=== PATIENT | female | born 1980 | race African-American/Black ===

== ENCOUNTER 2018-12-12 13:33 | Inpatient (IN) | payer MEDICAID ==
[~2018-12-12] VITALS: Ht 157.5 cm; Wt 171.0 kg
[2018-12-12] VITALS (9 sets, daily range): BP systolic 81–147; BP diastolic 44–114
--- NOTE | 2018-12-12 16:00 | NUR ---
PATIENT ARRIVED. CONNECTED TO LOW INT SUCTION. IMMEDIATE RETURN. 4 L NC. VSS. BESSYIN AWARE OF PATIENT HERE VIA TEXT FROM CHARGE NURSE.
--- NOTE | 2018-12-12 17:40 | NUR ---
DR ZAMORA AT BEDSIDE. UPDATE GIVEN.
--- NOTE | 2018-12-12 19:30 | NUR ---
PT A/OX4, LUNGS CLEAR, NGT VIA RIGHT NARE TO LIS, O2 @ 2L VIA N/C, LEFT MIDLINE INTACT WITH NS @ 100 CC/HR, MERRILL PATENT TO BSD, ABDOMEN DISTENDED WITH LARGE HERNIA, NO C/O @ THIS TIME
[2018-12-12 20:29] LABS: BASOPHILS 0 % (0-2); EOSINOPHILS 0.1 % (0-7); HEMATOCRIT 26.8 % (36.0-48.0); HEMOGLOBIN 8.2 g/dL (12-16); IMMATURE GRANULOCYTES 0.4 % (0-5); LYMPHOCYTES 11.3 % (15-50); MCH 23.4 pg (26.0-34.0); MCHC 30.6 g/dL (31.0-37.0); MCV 76.6 fL (80.0-100.0); MEAN PLATELET VOLUME 10.5 fL (7.4-10.4); MONOCYTES 8.2 % (2-11); PLATELET COUNT 324 10x3/uL (130-400); RDW 19.4 % (11.5-14.5); WBC 9.7 10x3/uL (4.8-10.8)
[2018-12-12 20:57] LABS: ALBUMIN 2.6 g/dL (3.4-5.0); ANION GAP 9.1 mmol/L (8-16); BILIRUBIN - TOTAL 1.13 mg/dL (0.2-1.3); CARBON DIOXIDE 37.5 mmol/L (21.0-32.0); CREATININE - SERUM 2.7 mg/dL (0.6-1.3); MAGNESIUM - SERUM 2.3 mg/dL (1.8-2.4); POTASSIUM - SERUM 4.6 mmol/L (3.5-5.1); PROTEIN - SERUM 6.3 g/dL (6.4-8.2)
--- NOTE | 2018-12-12 21:30 | NUR ---
PT RESTING QUIETLY, VITALS STABLE
--- NOTE | 2018-12-12 23:30 | NUR ---
TEMP 100.0 ORALLY, PT AROUSES EASILY, NO C/O PAIN, WILL CONT TO MONITOR
[2018-12-13] VITALS (24 sets, daily range): BP systolic 93–142; BP diastolic 47–108; Ht 157.5 cm; Wt 171.0 kg
[2018-12-13 00:28] LABS: APPEARANCE CLOUDY (CLEAR); BILIRUBIN NEGATIVE (NEGATIVE); COLOR DK YELLOW (YELLOW); GLUCOSE NEGATIVE (NEGATIVE); KETONE NEGATIVE (NEGATIVE); NITRITE NEGATIVE (NEGATIVE); PROTEIN 2+ mg/dL (NEGATIVE); UROBILINOGEN NORMAL (NORMAL)
[2018-12-13 00:32] LABS: EPITHELIAL CELLS 0-5 /hpf (0-5)
[2018-12-13 00:33] LABS: BACTERIA MANY /hpf (NONE SEEN)
--- NOTE | 2018-12-13 01:30 | NUR ---
PT SLEEPING WITHOUT DISTRESS, VITALS STABLE
--- NOTE | 2018-12-13 03:45 | NUR ---
PT GONE TO RADIOLOGY VIA BED
[2018-12-13 04:20] LABS: BASOPHILS 0 % (0-2); EOSINOPHILS 0 % (0-7); HEMATOCRIT 25.3 % (36.0-48.0); HEMOGLOBIN 7.6 g/dL (12-16); IMMATURE GRANULOCYTES 0.1 % (0-5); LYMPHOCYTES 12.4 % (15-50); MCV 76.7 fL (80.0-100.0); MONOCYTES 9.3 % (2-11); NEUTROPHILS 78.2 % (40-80); PLATELET COUNT 305 10x3/uL (130-400); RDW 19.1 % (11.5-14.5); WBC 9.9 10x3/uL (4.8-10.8)
[2018-12-13 04:45] LABS: % SATURATION 6 % (15-55); IRON 17 ug/dl (35-150); TOTAL IRON BIND CAPACITY 262 ug/dl (260-445); UNSAT IRON BIND CAPACITY 245 ug/dl (150-375)
[2018-12-13 05:09] LABS: ALBUMIN 2.5 g/dL (3.4-5.0); ANION GAP 8.7 mmol/L (8-16); BILIRUBIN - TOTAL 1.35 mg/dL (0.2-1.3); CARBON DIOXIDE 36.6 mmol/L (21.0-32.0); CREATININE - SERUM 3.2 mg/dL (0.6-1.3); MAGNESIUM - SERUM 2.2 mg/dL (1.8-2.4); PHOSPHOROUS 3.1 mg/dL (2.5-4.9); POTASSIUM - SERUM 4.3 mmol/L (3.5-5.1); PROTEIN - SERUM 6.7 g/dL (6.4-8.2)
--- NOTE | 2018-12-13 05:45 | NUR ---
PTWANTS TO KNOW WHY SHE CANT HAVE WATER, EXPLAINED SHE NEEDED TO LET HER GUT REST AND WOULD NOT BE ABLE TO DIGEST ANYTHING AT THIS TIME, MOM @ BEDSIDE
--- NOTE | 2018-12-13 07:00 | NUR ---
PATIENT IS ALERT AND ORIENTED. HOB 30 DEGREES. NO ABDOMINAL PAIN. NO PASSING OF GAS. PATIENT STATES SHE IS NO DISTRESS OR HAS NO NEEDS. I PROVIDED ICE CHIPS AT THIS TIME. LOW FEVER OF 99.5. STATES SHE IS COLD. LUNGS CTA BILATERALLY. PULSES PALP. NO N/V.
--- NOTE | 2018-12-13 09:30 | NUR ---
PATIENT TAKEN TO CT.
[2018-12-13 10:45] LABS: APTT 34.4 SECONDS (22.8-39.4); INR 1.27 (0.85-1.17); PROTIME 15.4 SECONDS (11.6-15.0)
--- NOTE | 2018-12-13 11:24 | NUR ---
GAVE PATIENT ICE CHIPS. FEVER OF 100.4. PATIENT STATES SHE IS TOO COLD TO TAKE COVERS OFF. VSS. 2 NS BOLUSES COMPLETED. WILL CONTINUE TO MONITOR.
--- NOTE | 2018-12-13 12:32 | NUR ---
dr avelar at bedside.
--- NOTE | 2018-12-13 13:23 | NUR ---
ANU TAKEN TO SURGERY
--- NOTE | 2018-12-13 15:46 | NUR ---
REPORT RECIEVED FROM CORETTA CARDOSO.
--- NOTE | 2018-12-13 16:38 | MORECARE ---
CASE MANAGEMENT DISCHARGE SUMMARY PATIENT: AYESHA ROMAN UNIT: [id number] ADM DATE: 12/12/18 AGE: 38 : 80 SEX: F ROOM/BED: D.2303 AUTHOR: SONNY FAITH PHYSICIAN: REFERRING PHYSICIAN: JENNIFER ZAMORA MD DATE OF SERVICE: 12/13/18 Discharge Plan Patient Name: AYESHA ROMAN [facility] : 1980 Planned Disposition: Home Anticipated Discharge Date: Discharge Date: Expected LOS: Initial Reviewer: [email or web address] Initial Review Date: 12/13/2018 Generated: 12/13/18 5:37 pm DCPIA - Discharge Planning Initial Assessment Updated by [email or web address]: Marlin Stewart on 12/13/18 4:34 pm * Is the patient Alert and Oriented? Yes * How many steps to enter\exit or inside your home? * PCP LAURA SANCHEZ * [facility] * Preadmission Environment Home with Family * ADLs Independent * Equipment None * List name and contact numbers for known caregivers / representatives who currently or will assist patient after discharge: GRANT DO [facility] - [phone] * Verbal permission to speak to the caregivers and representatives has been obtained from the patient. Yes * Community resources currently utilized None * Additional services required to return to the preadmission environment? No * Can the patient safely return to the preadmission environment? Yes * Has this patient been hospitalized within the prior 30 days at any hospital? No Patient Name: AYESHA ROMAN Page [id number] at 1638 All edits/amendments must be made on the electronic document DICTATION DATE: 12/13/[address] PRODUCTION GENERAL MANAGER: MARY 12/13/181636 RPT#: [id number] DC DATE: STATUS: ADM IN [facility] [address] [place] [address] END OF REPORT
--- NOTE | 2018-12-13 16:42 | NUR ---
patient back from OR
--- NOTE | 2018-12-13 17:00 | NUR ---
all lines hooked up to patient. order acknowledged. i and o done at this time. drains emptied. patient on vent 40%. no distress noted. patient sedated. vss. no levophed drip. will continue to monitor
--- NOTE | 2018-12-13 17:08 | MORECARE ---
CASE MANAGEMENT DISCHARGE SUMMARY PATIENT: AYESHA ROMAN UNIT: [id number] ADM DATE: 12/12/18 AGE: 38 : 80 SEX: F ROOM/BED: D.2303 AUTHOR: VIANNEY,DOC PHYSICIAN: REFERRING PHYSICIAN: JENNIFER ZAMORA MD DATE OF SERVICE: 12/13/18 Discharge Plan Patient Name: AYESHA ROMAN Facility: [facility]:[place] : 1980 Planned Disposition: Home Anticipated Discharge Date: Discharge Date: Expected LOS: Initial Reviewer: [email or web address] Initial Review Date: 12/13/2018 Generated: 12/13/18 6:08 pm Comments DCP- Discharge Planning Updated by [email or web address]: Marlin Stewart on 12/13/18 4:[address] Patient Name: AYESHA ROMAN Admission Status: Elective Accout number: [id number] Admission Date: 12-12-2018 : 1980 Admission Diagnosis: Attending: JENNIFER ZAMORA Current LOS: 1 Anticipated DC Date: Planned Disposition: Home Primary Insurance: UNINSURED DISCOUNT PLAN Discharge Planning Comments: CM met with patient and her Mother Yamilet at bedside after explaining CM role and obtaining verbal consent. Patient is drowsy at this time and will be having surgery later today. Patient lives at home with her three sons where she is independent with his care and plans to return there upon discharge. Patient feels this would be a safe discharge. CM discussed availability / needs of home health and medical equipment. Patient denies any discharge needs at this time. Uncertain as to what her needs will be at discharge. CM checked with Moisés with [employer] to see if patient has been evaluated for Medicaid. Moisés stated that they have not evaluated yet .Patient's mother stated she will have her family drive her home upon discharge. CM will continue to follow and assist as needed with discharge planning / needs. Re Etcher: Marlin Stewart DCPIDeni - Discharge Planning Initial Assessment Updated by [email or web address]: Marlin Stewart on 12/13/18 4:34 pm * Is the patient Alert and Oriented? Yes * How many steps to enter\exit or inside your home? * PCP LAURA SANCHEZ * Pharmacy [facility] * Preadmission Environment Home with Family * ADLs Independent * Equipment None * List name and contact numbers for known caregivers / representatives who currently or will assist patient after discharge: YAMILET DO - MOTHER - [phone] * Verbal permission to speak to the caregivers and representatives has been obtained from the patient. Yes * Community resources currently utilized None * Additional services required to return to the preadmission environment? No * Can the patient safely return to the preadmission environment? Yes * Has this patient been hospitalized within the prior 30 days at any hospital? No Last DP export: 12/13/18 3:38 p Patient Name: AYESHA ROMAN Page [phone] at 1708 All edits/amendments must be made on the electronic document DICTATION DATE: 12/13/181707 EVENING SITTER: MARY 12/13/181707 RPT#: [id number] DC DATE: STATUS: ADM IN [facility] [address] [place] [address] END OF REPORT
--- NOTE | 2018-12-13 18:41 | NUR ---
RESTRAINT ORDER IN. RESTRAINTS ON.
--- NOTE | 2018-12-13 19:00 | NUR ---
RECIEVED REPORT, PT SEDATED, OPENS EYES BRIEFLY TO VERBAL STIMULI, ETT PATENT TP VENT, NGT TO LIWS WITH MINIMAL GREEN OUTPUT, RIGHT IJ CVL INTACT WITH IVF INFUSUNG, LEFT MIDLINE INTACT WITH PROPOFOL INFUSING @ 5 MCG, ABDOMINAL INCISION WITH ERIKA INTAVT, WOUND VAC DRESING TO ABDOMEN, MERRILL PATENT TO BSD WITH CLEAR YELLOW URINE, RIGHT WRIST ART LINE INTACT, BILAT SWR IN USE
--- NOTE | 2018-12-13 21:00 | NUR ---
PT REMAINS SEDATED WITH NO DISTRESS NOTED, VITALS STABLE, WILL CONT TO MONITOR
--- NOTE | 2018-12-13 22:25 | NUR ---
SPOKE WITH DR LARA, STATES XRAY SHOWS ETT IN RIGHT MAIN STEM, ETT PULLED OUT TO 22 CM BY RT RAFAEL XRTD ORDERED FOR PLACEMENT
--- NOTE | 2018-12-13 23:30 | NUR ---
GIVEN TYLENOL VIA NGT AND CLAMPED FOR 30 MINUTES FOR TEMP 101.4 AX
[2018-12-14] VITALS (28 sets, daily range): BP systolic 104–149; BP diastolic 59–89
--- NOTE | 2018-12-14 01:30 | NUR ---
PT REMAINS SEDATED, OPENS EYES TO STIMULI, VITALS STABLE
--- NOTE | 2018-12-14 03:23 | NUR ---
PT OPENS EYES TO STIMULI, SEDATED, ETT INTACT TO VENT, LUNGS CTA, VITALS REMAIN STABLE
--- NOTE | 2018-12-14 05:32 | NUR ---
PT OPENS EYES TO VERBAL, DENIES PAIN, MOTHER @ BEDSIDE, VITALS STABLE
[2018-12-14 05:35] LABS: ALBUMIN 1.9 g/dL (3.4-5.0); ANION GAP 8.7 mmol/L (8-16); BILIRUBIN - TOTAL 1.45 mg/dL (0.2-1.3); CALCIUM 8.1 mg/dL (8.5-10.1); CARBON DIOXIDE 30.5 mmol/L (21.0-32.0); MAGNESIUM - SERUM 2.3 mg/dL (1.8-2.4); POTASSIUM - SERUM 4.2 mmol/L (3.5-5.1); PROTEIN - SERUM 5.9 g/dL (6.4-8.2)
[2018-12-14 05:46] LABS: BASOPHILS 0.2 % (0-2); EOSINOPHILS 0 % (0-7); HEMATOCRIT 22.8 % (36.0-48.0); IMMATURE GRANULOCYTES 0.2 % (0-5); LYMPHOCYTES 20.2 % (15-50); MCH 22.9 pg (26.0-34.0); MCHC 29.8 g/dL (31.0-37.0); MCV 76.8 fL (80.0-100.0); MEAN PLATELET VOLUME 9.6 fL (7.4-10.4); MONOCYTES 6.3 % (2-11); NEUTROPHILS 73.1 % (40-80); RBC 2.97 10x6/uL (4.00-5.40); RDW 19.1 % (11.5-14.5)
[2018-12-14 05:47] LABS: WBC 6.6 10x3/uL (4.8-10.8)
[2018-12-14 05:48] LABS: HEMOGLOBIN 6.8 g/dL (12-16); PLATELET COUNT 226 10x3/uL (130-400)
[2018-12-14 05:49] LABS: CREATININE - SERUM 1.6 mg/dL (0.6-1.3); PHOSPHOROUS 1.9 mg/dL (2.5-4.9)
--- NOTE | 2018-12-14 06:00 | NUR ---
HGB 6.8, CALLED RESULTS TO MARILU BLOUNT, ORDERS RECIEVED TO TRANSFUSE 1 UNIT PRBC AND RECHECK CBC @ 1200
--- NOTE | 2018-12-14 07:00 | NUR ---
PATIENT IS ON VENTILATOR. 40%. RR OF 14. NO DISTRESS NOTED.. PATIENT IS AWARE OF SITUATION. SHE IS ABLE TO FOLLOW COMMANDS. VSS. SAYS SHE IS IN A LITTLE PAIN. EDUCATED HER ON THE FENTANYL DRIP. SHIFT ASSESSMENT COMPLETED. LUNGS CTA BILATERAL.
--- NOTE | 2018-12-14 07:54 | NUR ---
ZEROED THE ARTERAIL LINE. NOT RECIEVING CORRECT READING. WAS TOLD IN REPORT RESPIRATORY ATTEMPTED TO DRAW FROM IT AND IT DID NOT WORK.
--- NOTE | 2018-12-14 08:45 | OP ---
PATIENT NAME: AYESHA ROMAN MEDICAL RECORD: [id number] :[birth year] LOCATION:[facility] D.2303 ADMISSION DATE:12/12/18 SURGEON: ZENY LARA MD DATE OF OPERATION: 12/13/2018 SURGEON: Zeny Lara MD PREOPERATIVE DIAGNOSIS: Incarcerated ventral hernia. POSTOPERATIVE DIAGNOSES: 1. Incarcerated ventral hernia. 2. Necrotizing soft tissue fasciitis. 3. Gangrenous small bowel. PROCEDURE PERFORMED: Exploratory laparotomy, small bowel resection, sharp scissor debridement of necrotizing soft tissue infection. Medically necessary vertical panniculectomy, abdominal washout, and incisional hernia repair with mesh. Case was contaminated. ESTIMATED BLOOD LOSS: 300 cc. ANESTHESIA: General. COMPLICATIONS: None. OPERATIVE COURSE: After consent was obtained, the patient was taken to the operating room and placed in supine position on the operating table. Next, general anesthesia was given via endotracheal intubation after a timeout was performed to confirm the correct patient and procedure. A midline incision was made using 10-blade scalpel. Once the skin was incised, dissection continued through the subcutaneous tissue with electrocautery. A large hernia sac was identified below the skin and subcutaneous level consistent with CT scan findings. The contents of the approximately 1/2-2/3 of the small bowel where herniated through the ventral hernia defect. The bowel had full-thickness gangrenous necrosis with necrotic subcutaneous tissue noted throughout the subcutaneous space. There was no bowel perforations noted. The subcutaneous tissue was continuously dissected with electrocautery until the fascial edges were identified on the ventral hernia. The ventral hernia defect was then opened using electrocautery in the midline, inferiorly and superiorly. The proximal and distal portions of the small bowel that were living and healthy were identified. At this time, small bowel resected using linear ELEANOR staplers. The mesentery was taken with the Harmonic scalpel, grossly gangrenous small bowel was passed off the field and sent for permanent pathology. The abdominal cavity was copiously irrigated and suctioned. Approximately 1/3-1/2 of the small bowel remained. A functional [id number]-ym-[id number] anastomosis was created using the linear ELEANOR staplers. Enterotomies were made with the Harmonic scalpel. Common enterotomy was made using the linear ELEANOR stapler. The common enterotomy was then closed with a second firing of the linear ELEANOR stapler. The staple line was imbricated using 3-0 Vicryl suture. The mesenteric defect was closed using 3-0 Vicryl suture. The small bowel was run from the ligament of Treitz to the terminal ileum, remaining portion of the abdominal contents appeared intact. Due to the degree of necrotizing fasciitis of the subcutaneous tissue, this time a medically necessary vertical panniculectomy was performed to excise all OPERATIVE REPORT [id number] AYESHA ROMAN necrotic and skin and subcutaneous tissue. At this time, the fascia was closed using interrupted #1 looped PDS. An onlay hernia repair with mesh was performed using Phasix mesh. It was secured to the anterior abdominal wall using 3-0 Vicryl suture, subcutaneous flaps were created to allow for closure using electrocautery. Prior to closure, MELODY drains were placed, a single MELODY drain was placed into the abdominal pelvis. Two MELODY drains were placed in the subcutaneous layer to the abdominal fascia. The skin was then reapproximated and closed using the skin stapler. A small portion in the middle of the incision was left open, closure with negative pressure wound therapy. At the remaining portion of the open incision, black foam was placed into the subcutaneous tissue. The VAC was placed to suction with good seal. The MELODY drains were placed to suction. At the end of the case, all needle and instrument counts were correct. No complications occurred. The patient was transferred in critical condition, intubated to the ICU. TRANSINT:[id number] Voice Confirmation ID: [id number] DOCUMENT ID: [id number] ZENY LARA MD at 0845 CC: [id number] DICTATION DATE: 12/13/18 164 SCAGLIOLA MECHANIC: 12/14/18 0259 ADM IN [facility] [address] [place] [address]
--- NOTE | 2018-12-14 09:15 | NUR ---
DR CHEN AT BEDSIDE. UPDATE GIVEN. ORDER TO EXTUBATE.
--- NOTE | 2018-12-14 11:00 | NUR ---
PATIENT RESTING. STATES PAIN OF 3/10. MINIMAL ABDOMINAL PAIN. STATES PAIN GETS WORSE WHEN SHE COUGHS. VSS. NO DISTRESS NOTED. NPO. REASSESSMENT DONE AT THIS TIME. WILL CONINTUE TO MONITOR
--- NOTE | 2018-12-14 12:57 | NUR ---
Nutrition follow-up: Pt NPO, intubated s/p SB resection; 50-75 cm small bowel with ileocical valve intact. 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 Wt: 396# Will need nutrition support if unable to extubate within 24-[address] following.
--- NOTE | 2018-12-14 12:59 | NUR ---
WOUND CARE AWARE OF CONSULT
[2018-12-14 13:34] LABS: BASOPHILS 0 % (0-2); EOSINOPHILS 0 % (0-7); IMMATURE GRANULOCYTES 0.4 % (0-5); LYMPHOCYTES 15.1 % (15-50); MCH 23.9 pg (26.0-34.0); MONOCYTES 6.4 % (2-11); NEUTROPHILS 78.1 % (40-80); PLATELET COUNT 204 10x3/uL (130-400); RBC 3.14 10x6/uL (4.00-5.40); RDW 19.1 % (11.5-14.5); WBC 8.1 10x3/uL (4.8-10.8)
[2018-12-14 13:38] LABS: HEMOGLOBIN 7.5 g/dL (12-16); MCV 79.6 fL (80.0-100.0)
--- NOTE | 2018-12-14 15:00 | NUR ---
PATIENT AFEBRILE. HIGHEST TEMP 99.2. 4 LNC. DENIES SOB OR ANY DISTRESS. STATES SHE DOES HAVE PAIN WHEN SHE COUGHS. HOB 30. MERRILL FREE OF KINKS AND HANGING ON SIDE OF BED. CALL LIGHT WITHIN REACH. ANSWERED QUESTIONS FAMILY HAD. EDUCATED ON MEDICATIONS SHE IS ON.
--- NOTE | 2018-12-14 17:30 | NUR ---
CVL DRESSING DONE. ORAL CARE DONE. WILL CONTINUE TO MONITOR. CALL LIGHT WITHIN REACH. NO DISTRESS NOTED. PATIENT STATED SHE WANTED HER COUSIN TO BATHE HER WHEN SHE GETS HERE TONIGHT. BED LOW AND LOCKED.
--- NOTE | 2018-12-14 20:34 | NUR ---
RIGHT WRIST ART LINE D/C'D, PT ALERT, ORIENTED, NGT TO LIWS, MELODY DRAIN X3 INTACT, MERRILL PATENT TO BSD, RIGHT IJ CVL WITH IVF INFUSING, NO C/O
--- NOTE | 2018-12-14 21:53 | NUR ---
PT BATHED WITH ASSIST FROM PT SISTER
--- NOTE | 2018-12-14 23:30 | NUR ---
AROUSES TO VERBAL STIMULI, NO DISTRESS NOTED, VITALS STABLE
[2018-12-15] VITALS (13 sets, daily range): BP systolic 107–130; BP diastolic 56–78
--- NOTE | 2018-12-15 01:30 | NUR ---
PT RESTING QUIETLY, OPENS EYES SPONTANEOUSLY, VITALS STABLE, NO C/O
--- NOTE | 2018-12-15 03:30 | NUR ---
PT RESTING QUIETLY, OPENS EYES TO VERBAL, VITALS STABLE
[2018-12-15 04:27] LABS: BASOPHILS 0.1 % (0-2); EOSINOPHILS 0.6 % (0-7); HEMATOCRIT 23.6 % (36.0-48.0); IMMATURE GRANULOCYTES 0.6 % (0-5); LYMPHOCYTES 17.1 % (15-50); MCH 23.8 pg (26.0-34.0); MCHC 29.7 g/dL (31.0-37.0); MCV 80.3 fL (80.0-100.0); MEAN PLATELET VOLUME 9.3 fL (7.4-10.4); MONOCYTES 5.4 % (2-11); NEUTROPHILS 76.2 % (40-80); PLATELET COUNT 176 10x3/uL (130-400); RBC 2.94 10x6/uL (4.00-5.40); RDW 19.1 % (11.5-14.5); WBC 7.7 10x3/uL (4.8-10.8)
[2018-12-15 04:42] LABS: ALBUMIN 1.8 g/dL (3.4-5.0); ANION GAP 6.4 mmol/L (8-16); BILIRUBIN - TOTAL 0.66 mg/dL (0.2-1.3); CALCIUM 7.4 mg/dL (8.5-10.1); CARBON DIOXIDE 32.8 mmol/L (21.0-32.0); MAGNESIUM - SERUM 2.2 mg/dL (1.8-2.4); POTASSIUM - SERUM 4.2 mmol/L (3.5-5.1)
[2018-12-15 04:54] LABS: CREATININE - SERUM 1.1 mg/dL (0.6-1.3); PHOSPHOROUS 3.1 mg/dL (2.5-4.9)
--- NOTE | 2018-12-15 05:05 | NUR ---
HGB 7.0, CALLED MARILU BLOUNT, WILL REFER TO DR ZAMORA THIS AM, PT SLEEPING WITHOUT DISTRESS
--- NOTE | 2018-12-15 06:00 | NUR ---
PT AWAKE, MOM AT BEDSIDE, ENCOURAGED PT TO DEEP BREATHE AND COUGH, CALL LIGHT IN REACH
--- NOTE | 2018-12-15 07:00 | NUR ---
RECEIVED REPORT AT BEDSIDE FROM WALKER GROVER. PT RESTING IN BED AWAKE ALERT AND ORIENTED C VSS. 2L O2 NC. MIDLINE ABDOMINAL INCISION CLOSED WITH ERIKA AND TEGARDER. 2 MELODY DRAINS TO RIGHT LOWER ABDOMEN, 1 MELODY TO LEFT LOWER ABDOMEN. WOUND VAC TO MID ABDOMINAL INCISION. ALL DRAINING SEROSANGUINEOUS FLUID. MERRILL DRAINING CONCENTRATED URINE. LEFT UPPER ARM MIDLINE SALINE LOCKED. RIGHT IJ C D5LR INFUSING AT 125. NGT TO LIS--LIGHT GREEN BILE DRAINAGE. SCD'S INTACT. WILL CONTINUE TO MONITOR
--- NOTE | 2018-12-15 07:53 | NUR ---
CVP 6
--- NOTE | 2018-12-15 08:22 | NUR ---
ASSISTED PATIENT UP TO CHAIR PER DR. LARA. VSS
--- NOTE | 2018-12-15 08:45 | NUR ---
OBTAINED CONSENT FOR PRBC TRANSFUSION
--- NOTE | 2018-12-15 09:10 | NUR ---
INITIATED PRBC TRANSFUSION AT THIS TIME. VSS. WILL CONTINUE TO MONITOR
--- NOTE | 2018-12-15 09:49 | NUR ---
PRBC INFUSING AT 125ML/HR. VSS
--- NOTE | 2018-12-15 10:33 | NUR ---
INCREASED PRBC RATE TO 150. VSS
--- NOTE | 2018-12-15 11:40 | NUR ---
PRBC TRANSFUSION COMPLETE. VSS
--- NOTE | 2018-12-15 13:11 | NUR ---
CALLED REPORT TO MED 2 NURSE.
--- NOTE | 2018-12-15 13:35 | NUR ---
PT RECD FROM ICU TO ROOM. PT IS AAO X 4 BUT EASILY RETURNS TO A RESTING STATE. PT REPORTS PAIN 8/10 TO ABDOMEN. WILL ADDRESS. SEE EMAR. PT REFERS TO STAY IN BEDSIDE CHAIR AT THIS TIME. NG TUBE TO RIGHT NARE. MELODY DRAINS X 3. MELODY DRAIN TO LLQ WITH SCANT YELLOW DRAINAGE NOTED. BULB IS COMPRESSSED. MELODY DRAIN X 2 TO RIGHT ADOMEN WITH MINIMAL YELLOW DRAINAGE IN EACH. BULBS ARE COMPRESSED. WOUND VAC TO UMBILICA AREA DRESSING IS INTACT. 40 ERIKA NOTED TO MIDLINE ABDOMEN OPEN TO AIR EXCEPT FOR FEW THAT ARE COVERED WITH DRESSING FOR WOUND VAC. MERRILL CATHETER NOTED AND IS DRAINING FREELY. CLEAR DARK YELLOW URINE NOTED TO COLLECTION BAG. PT DENIES PRESENCE OF N/V. PT IS CONT TO REQUEST TO STAY IN BEDSIDE CHAIR. CALL LIGHT AND BEDSIDE TABLE ARE WITHIN REACH. WILL CONT TO MONITOR. FAMILY IS AT BEDSIDE.
--- NOTE | 2018-12-15 15:32 | NUR ---
OT NOTE: PT REQUIRED MAX A X2 FOR CHAIR TO BED TSF. PT COMPLETED BED MOB TASKS IWTH MAX A X2. THANK YOU,JONA TRONCOSO
--- NOTE | 2018-12-15 17:45 | NUR ---
PHARMACY NOTIFIED OF NEED FOR PT FLUIDS. SEE EMAR. ICU STAFF STATES THAT THEY DO NOT HAVE ANY ON THEIR FLOOR. WILL WAIT FOR PHARMACY TO BRING PT FLUIDS.
[2018-12-16 00:35] VITALS: BP 116/53
[2018-12-16 05:07] VITALS: BP 113/70
[2018-12-16 06:12] LABS: BASOPHILS 0.3 % (0-2); EOSINOPHILS 2.7 % (0-7); IMMATURE GRANULOCYTES 0.9 % (0-5); LYMPHOCYTES 20.3 % (15-50); MONOCYTES 7.2 % (2-11); NEUTROPHILS 68.6 % (40-80)
[2018-12-16 06:19] LABS: HEMATOCRIT 26.6 % (36.0-48.0); MCH 24.4 pg (26.0-34.0); MCHC 30.1 g/dL (31.0-37.0); MCV 81.1 fL (80.0-100.0); PLATELET COUNT 163 10x3/uL (130-400); RBC 3.28 10x6/uL (4.00-5.40); RDW 19.2 % (11.5-14.5); WBC 7.9 10x3/uL (4.8-10.8)
[2018-12-16 06:30] LABS: ALBUMIN 1.8 g/dL (3.4-5.0); ANION GAP 9.2 mmol/L (8-16); BILIRUBIN - TOTAL 0.39 mg/dL (0.2-1.3); CALCIUM 7.9 mg/dL (8.5-10.1); MAGNESIUM - SERUM 2.1 mg/dL (1.8-2.4); PHOSPHOROUS 2.9 mg/dL (2.5-4.9); POTASSIUM - SERUM 4.2 mmol/L (3.5-5.1); PROTEIN - SERUM 6.4 g/dL (6.4-8.2)
[2018-12-16 08:30] VITALS: BP 133/71
[2018-12-16 08:46] LABS: PLATELET ESTIMATE NORMAL
[2018-12-16 08:48] LABS: ANISOCYTOSIS OCC; PLATELET MORPHOLOGY PLT CLUMPS PRESENT; POLYCHROMASIA OCC; ROULEAUX OCC
--- NOTE | 2018-12-16 11:22 | NUR ---
WOUND VAC DRESSING CHANGE DATE:12/16/18 WOUND LOCATION:MIDLINE ABDOMEN WOUND MEASUREMENTS:7CM X 5CM X 5CM WOUND DESCRIPTION: RED/CLEAN MUSCLE, TENDON, OR BONE EXPOSED? NO DRAINAGE AMOUNT/DESCRIPTION: MODERATE SEROSANGUINOUS ODOR? NO TYPE OF SPONGE USED AND AMOUNT: BLACK X 2 PIECES SETTINGS: -125 LOW CONTINUOUS TEACHING: DRESSING CHANGES PT TOLERATED WELL
[2018-12-16 12:56] VITALS: BP 100/49
--- NOTE | 2018-12-16 14:40 | NUR ---
OT NOTE: PT PERFORMED VERY WELL TODAY. LETHARGIC BUT STATED THAT SHE WAS JUST GIVEN SOMETHING FOR PAIN. BED MOB WITH MOD ASSIST. SIT TO STAND WITH WALKER AND MIN ASSIST; AMB INTO HALLWAY WITH WALKER AND MIN ASSIST X APPROX 30 FT. ABLE TO PERFORM SIMPLE GROOMING TASK WITH SET UP; TRANSFER TO CHAIR WITH MIN ASSIST AND USE OF WALKER. PT WAS ABLE TO SCOOT BACK IN CHAIR WITHOUT ASSIST TODAY. RESTING COMFORTABLE WITH NO NEEDS. SYEDA MONTES DE OCA, OTR/L
[2018-12-16 16:35] VITALS: BP 130/68
--- NOTE | 2018-12-16 19:15 | NUR ---
PT ALERT AND ORIENTED WHEN ENTERING THE ROOM. HOB AT 15 DEGREE ANGLE. PATIENT MOTHER AT BEDSIDE. PATIENT LUNGS CLEAR BILATERALLY. WEARING 02 AT 2 L VIA NC. PATIENT ABDOMEN IS DISTENDED. HAS WOUNDVAC ATTACHED WITH DARK DRAINAGE IN CANNISTER. ERIKA TO ABDOMEN WITH MELODY DRAIN X 2 TO THE RIGHT SIDE OF ABDOMEN AND ONE MELODY TO THE LEFT SIDE OF ABDOMEN. SMALL AMOUNT OR YELLOWISH DRAINAGE NOTED. PATIENT HAS RIGHT INTERNAL JUGGULAR THAT IS PATENT AND INFUSING IVF ORDERED. PATIENT ALSO HAS MIDLINE IV TO THE LEFT UPPER ARM THAT IS SALINE LOCKED. STATES PAIN IS CURRENTLY 3. DENIES OTHER ISSUES AT THIS TIME. CPOC.
[2018-12-16 20:00] VITALS: BP 84/49
--- NOTE | 2018-12-16 20:32 | NUR ---
ADMINISTERED PAIN MEDICATION PER REQUEST. ALSO ADMINISTERED PM MEDICATIONS. PT TOLERATED WELL.
[2018-12-17] VITALS (11 sets, daily range): BP systolic 87–149; BP diastolic 46–77
--- NOTE | 2018-12-17 02:24 | NUR ---
UP TO BEDSIDE COMMODE WITH ASSISTANCE. PATIENT UP AND TO BSC WITH MINIMAL ASSIST. UNABLE TO URINATE OTHER THAN FEW DROPS. WILL REASSESS.
--- NOTE | 2018-12-17 06:38 | NUR ---
ASSISTED PATIENT TO BEDSIDE COMMODE AGAIN. PATIENT DID NOT VOID WITH OTHER NURSING INTERVENTIONS. PATIENT STATES "I FEEL LIKE I COULD GO BUT I DONT REALLY HAVE TO." BLADDER SCANNED PATIENT X 2 AND RECEIVED READINGS OF MAX 223 AND MAX OF 273. DISCUSSED WITH CHARGE NURSE AND CHARGE NURSE STATED IF IT WERE MORE THAN 325+ WE WOULD WANT TO IN AND OUT CATH BUT PATIENT IS NPO EXCEPT FOR POPSICLES, ETC. DISCUSSED OPTIONS WITH PATIENT. PATIENT STATES SHE WOULD LIKE TO WAIT BECAUSE SHE DOESNT FEEL THAT SHE REALLY NEEDS TO AT THIS TIME. REPORTED TO CHARGE NURSE. WILL PASS ALONG IN REPORT. MOTHER REMAINS AT PATIENT BEDSIDE. CPOC.
[2018-12-17 07:09] LABS: BASOPHILS 0.3 % (0-2); EOSINOPHILS 3.6 % (0-7); HEMATOCRIT 26.1 % (36.0-48.0); IMMATURE GRANULOCYTES 1.8 % (0-5); LYMPHOCYTES 23.9 % (15-50); MCH 24.8 pg (26.0-34.0); MCHC 30.7 g/dL (31.0-37.0); MCV 81.1 fL (80.0-100.0); MEAN PLATELET VOLUME 9.5 fL (7.4-10.4); MONOCYTES 7.9 % (2-11); NEUTROPHILS 62.5 % (40-80); PLATELET COUNT 163 10x3/uL (130-400); RBC 3.22 10x6/uL (4.00-5.40); RDW 19.8 % (11.5-14.5); WBC 9.1 10x3/uL (4.8-10.8)
[2018-12-17 07:14] LABS: ANION GAP 10.2 mmol/L (8-16); BILIRUBIN - TOTAL 0.39 mg/dL (0.2-1.3); CALCIUM 7.8 mg/dL (8.5-10.1); CARBON DIOXIDE 29.7 mmol/L (21.0-32.0); CREATININE - SERUM 1.1 mg/dL (0.6-1.3); PHOSPHOROUS 2.9 mg/dL (2.5-4.9); POTASSIUM - SERUM 3.9 mmol/L (3.5-5.1); PROTEIN - SERUM 6.5 g/dL (6.4-8.2)
--- NOTE | 2018-12-17 08:11 | NUR ---
AWKE AND ALERT. ORIENTED X3. NO C/O AT THIS TIME. MOM AT BEDSIDE. LUNGS ARE CLEAR BILATERALLY, NO COUGH NOTED. SKIN IS INTACT WITHOUT REDNESS EXCEPT INCISION TO MID ABDOMEN WHICH IS CLEAN AND DRY IWTH CLIPS INTACT. WOUND VAC IS PATENT WITH SCANT SEROUS SANGUINESS DRAINAGE. MELODY X3 PATENT WITH SCANT SEROUS SANGUINESS DRAINAGE NOTED. RIGHT IJ PATNE TIWHTOUT REDNESS AT INSERTION SITE. MIDLINE TO LEFT UPPER ARM IS PATENT WITHOUT REDNESS AT INSERTION SITE. STILL NO URGE TO VOID. WILL MONITOR. DENIES NEEDS.
--- NOTE | 2018-12-17 11:15 | NUR ---
REQUESTED AND GIVNE 4MG MORPHINE SLOW IVP FOR C/O ABDOMINAL PAIN LEVEL 8. WILL MONITOR.UP AND WORKED WITH PT. VOIDED 350CC DARK JONY ODIFEROUS URINE. UP IN [facility] AT THIS TIME.
--- NOTE | 2018-12-17 14:20 | NUR ---
TRANSFUSION INITIATED. VSS. DENIES NEEDS.
--- NOTE | 2018-12-17 14:37 | NUR ---
TRANSFUSION CONTINUES WITHOUT COMPLICATIONS. VSS. FAMILY AT BEDSIDE.
--- NOTE | 2018-12-17 15:30 | NUR ---
TRANSFUSION CONTINUES WITHOUT COMPLICATIONS. VSS.
--- NOTE | 2018-12-17 16:30 | NUR ---
NO CHANGES. TRANSFUSION CONTINUES. VSS.
--- NOTE | 2018-12-17 17:05 | NUR ---
TRANSFUSION COMPLETED. VSS. NO SIGNS OF REACTIONS.
--- NOTE | 2018-12-17 18:02 | NUR ---
SITTING UP IN [facility] AT BEDSIDE. CL SUPPER SERVED IN ROOM. DENIES NEEDS. FAMILY AT BEDSIDE. NO CHANGES NOTED.
--- NOTE | 2018-12-17 20:00 | NUR ---
PT ALERT AND ORIENTED UP IN CHAIR. ASSISTED PATIENT TO BEDSIDE COMMODE. PATIENT HAS LARGE LIQUID STOOL AND URINATED SEVERAL HUNDRED MLS. PROVIDED BED BATH TO PATIENT AND RETURNED TO BED. PATIENT HAS RIGHT INTERNAL JUGGULAR IV THAT IS PATENT WELL LEFT UPPER ARM MIDLINE. WEARING 2 L NC. DENIES PAIN AT THIS TIME. FAMILY IN ROOM. PROVIDED EDUCATION ON CLEAR LIQUID DIETS. PATIENT VERBALIZES UNDERSTANDING. HAS CALL LIGHT IN HAND AND STATES "i KNOW HOW TO USE IT." CPOC.
[2018-12-18] VITALS: BP 131/75
--- NOTE | 2018-12-18 03:42 | NUR ---
I have reviewed this patient and I concur with the Shift Assessment completed by the Licensed Practical Nurse today this shift.
[2018-12-18 04:00] VITALS: BP 105/66
--- NOTE | 2018-12-18 07:53 | NUR ---
AWAKE AND ALERT. ORIENTED X3. NO C/O THIS AM. MOM AT BEDSIDE. LUNGS HAVE FAINT CRACKELES THROUGHOUT AND DIMINISHED. ENCOURAGED TO IS WA. WILL MONITOR. SKIN IS INTACT WITHOUT REDNESS EXCEPT ABDOMINAL INCISION WHICH IS CLEAN,DRY WITH CLIPS INTACT. WOUND VAC IN PLACE TO SAME WITH SEROUS SANGUINESS DRAINAGE NOTED. MELODY X 3 WITH SCANT OUTPUT. RIGHT IJ PATENT WITHOUT REDNESS AT INSERTION SITE BUT GETTING SORE PER PATIENT. MIDLINE TO LEFT UPPER ARM IS PATENT WITHOUT REDNESS AT INSERTION SITE. DENIES NEEDS.
[2018-12-18 08:15] VITALS: BP 123/75
--- NOTE | 2018-12-18 09:00 | NUR ---
INCONTINENT OF LARGE AMOUNT OF LOOSE WATERY STOOL. SKIN CARE PER STAFF. THIS IS THE SECOND EPISODE THIS AM. DENIES NEEDS.
[2018-12-18 09:52] LABS: ANION GAP 8.6 mmol/L (8-16); CARBON DIOXIDE 28.5 mmol/L (21.0-32.0); CREATININE - SERUM 1.1 mg/dL (0.6-1.3); POTASSIUM - SERUM 4.1 mmol/L (3.5-5.1)
[2018-12-18 09:55] LABS: BASOPHILS 0.7 % (0-2); EOSINOPHILS 3.1 % (0-7); HEMATOCRIT 29.7 % (36.0-48.0); HEMOGLOBIN 9.2 g/dL (12-16); IMMATURE GRANULOCYTES 3.8 % (0-5); MCH 25.3 pg (26.0-34.0); MCV 81.6 fL (80.0-100.0); MEAN PLATELET VOLUME 9.8 fL (7.4-10.4); MONOCYTES 7.7 % (2-11); NEUTROPHILS 59.7 % (40-80); PLATELET COUNT 155 10x3/uL (130-400); RBC 3.64 10x6/uL (4.00-5.40); RDW 19.5 % (11.5-14.5)
--- NOTE | 2018-12-18 11:08 | NUR ---
UP TO BSC WITH PT. HAD ANOTHER EPISODE OF LOOSE WATERY STOOL. SKIN CARE PER STAFF AND SELF. POSITIONED IN CHAIR FOR COMFORT.
--- NOTE | 2018-12-18 12:02 | NUR ---
REQUESTED AND GIVEN 4MG MORPHINE SLOW IVP FOR C/O PAIN ABDOMEN, LEVEL 9. WILL MONITOR.
[2018-12-18 12:18] VITALS: BP 135/63
--- NOTE | 2018-12-18 15:00 | NUR ---
SISTER HERE AND ASSISTED PATIENT WITH BATH AND LINENS CHANGED AGAIN. PATIENT REPORTS FEELING BETTER.
[2018-12-18 17:05] VITALS: BP 139/70
--- NOTE | 2018-12-18 18:31 | NUR ---
ATE ABOUT 25% OF SUPPER REGULAR DIET. NO C/O PAIN OR NAUSEA WITH FOOD. NO CHANGES NOTED. DENIES NEEDS.
--- NOTE | 2018-12-18 18:33 | MORECARE ---
CASE MANAGEMENT DISCHARGE SUMMARY PATIENT: AYESHA ROMAN UNIT: [id number] ADM DATE: 12/12/18 AGE: 38 : 80 SEX: F ROOM/BED: D.2210 AUTHOR: VIANNEY,DOC PHYSICIAN: REFERRING PHYSICIAN: JENNIFER ZAMORA MD DATE OF SERVICE: 12/18/18 Discharge Plan Patient Name: AYESHA ROMAN Facility: [facility]:[place] : 1980 Planned Disposition: Home Anticipated Discharge Date: Discharge Date: Expected LOS: Initial Reviewer: [email or web address] Initial Review Date: 12/13/2018 Generated: 12/18/18 7:33 pm Comments DCP- Discharge Planning Updated by [email or web address]: Melonie Smith on 12/18/18 5:[address] LATE ENTRY 1030 CM RECEIVED A REQUEST TO SPEAK WITH THE PATIENT AND HER MOTHER AT THE BEDSIDE REGARDING DISCHARGE PLANNING. 1330 CM WENT TO THE ROOM. THE PATIENT WAS OOB IN THE CHAIR. SHE COMPLETED HER RESP TREATMENT. SHE STATED HER MOTHER, YAMILET , WANTED TO SPEAK WITH ME. SHE WAS NOT PRSENT IN THE ROOM OR HALLWAY THE PATIENT INDICATED. 1445 THE MOTHER CAME TO THE DESK. CM MET WITH HER IN THE CASE MANAGEMENT OFFICE. THE PATIENT REPORTEDLY HAS BEEN CONTACTED BY [employer]. CM NOTED MEDICAID PENDING. TC TO VERIFY. THE MOTHER IS CONCERNED REGARDING CARE AT DISCHARGE. CM ADVISED HOME HEALTH CAN BE ORDERD FOR SN. THE MOTHER IS IN A WHEELCHAIR. SHE IS LIMITED IN THE ASSISTANCE SHE CAN PROVIDE. CM ADVISED TO ASSIST WITH PROVIDING INFORMATION THAT [employer] REQUEST. 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 DEPENDING ON HER PROGRESS SHE MAY NEED A SKILLED SETTING. THE DISCHARGE PLAN IS FOR HOME. CM ALSO DISCUSSED WORKING WITH SOCIAL SECURITY REGARDING AN APPLICATION FOR DISABILITY DEPENDING ON RECOVERY TIME AND RESTRICTIONS AT DISCHARGE, CM PROVIDED THE 800 PHONE NUMBER FOR SOCIAL SECURITY. CM DISCUSSED MD PROVIDERS ON SERVICE TO DISCUSS POSSIBLE D/C NEEDS. CM ALSO ADVISED A CM IS AVAILABLE ON THE UNIT M-F TO ASSIST. EXPLAINED SHE NEED TO GET RELEASE OF INFORMATION FORMS. CM TO FOLLOW TO ASSIST. DCP- Discharge Planning Updated by [email or web address]: Marlin Stewart on 12/13/18 4:[address] Patient Name: AYESHA ROMAN Admission Status: Elective Accout number: [id number] Admission Date: 12-12-2018 : 1980 Admission Diagnosis: Attending: JENNIFER ZAMORA Current LOS: 1 Anticipated DC Date: Planned Disposition: Home Primary Insurance: UNINSURED DISCOUNT PLAN Discharge Planning Comments: CM met with patient and her Mother Yamilet at bedside after explaining CM role and obtaining verbal consent. Patient is drowsy at this time and will be having surgery later today. Patient lives at home with her three sons where she is independent with his care and plans to return there upon discharge. Patient feels this would be a safe discharge. CM discussed availability / needs of home health and medical equipment. Patient denies any discharge needs at this time. Uncertain as to what her needs will be at discharge. CM checked with Moisés with [employer] to see if patient has been evaluated for Medicaid. Moisés stated that they have not evaluated yet .Patient's mother stated she will have her family drive her home upon discharge. CM will continue to follow and assist as needed with discharge planning / needs. Wafer Polisher: Marlin OMALLEY - Discharge Planning Initial Assessment Updated by [email or web address]: Marlin Stewart on 12/13/18 4:34 pm * Is the patient Alert and Oriented? Yes * How many steps to enter\exit or inside your home? * PCP LAURA SANCHEZ * [facility]acy [facility] * Preadmission Environment Home with Family * ADLs Independent * Equipment None * List name and contact numbers for known caregivers / representatives who currently or will assist patient after discharge: YAMILET DO - MOTHER - [phone] * Verbal permission to speak to the caregivers and representatives has been obtained from the patient. Yes * Community resources currently utilized None * Additional services required to return to the preadmission environment? No * Can the patient safely return to the preadmission environment? Yes * Has this patient been hospitalized within the prior 30 days at any hospital? No Last DP export: 12/13/18 4:08 p Patient Name: AYESHA ROMAN Page 62056 at 1833 All edits/amendments must be made on the electronic document DICTATION DATE: 12/18/181832 CONFERENCE CENTER MANAGER: MARY 12/18/181832 RPT#: [id number] DC DATE: STATUS: ADM IN [facility] [address] [place] [address] END OF REPORT
[2018-12-18 20:00] VITALS: BP 125/51
[2018-12-19] VITALS: BP 118/68
[2018-12-19 04:00] VITALS: BP 116/60
[2018-12-19 05:52] LABS: ANION GAP 12.4 mmol/L (8-16); CALCIUM 7.3 mg/dL (8.5-10.1); CARBON DIOXIDE 26.7 mmol/L (21.0-32.0); POTASSIUM - SERUM 4.1 mmol/L (3.5-5.1)
--- NOTE | 2018-12-19 05:52 | NUR ---
UNABLE TO OBTAIN STOOL SAMPLE DUE TO URINE CONTAMINATION
[2018-12-19 05:55] LABS: HEMATOCRIT 27.3 % (36.0-48.0); HEMOGLOBIN 8.5 g/dL (12-16); MCH 25.1 pg (26.0-34.0); MCHC 31.1 g/dL (31.0-37.0); MCV 80.5 fL (80.0-100.0); MEAN PLATELET VOLUME 10.5 fL (7.4-10.4); PLATELET COUNT 154 10x3/uL (130-400); RBC 3.39 10x6/uL (4.00-5.40); WBC 7.7 10x3/uL (4.8-10.8)
[2018-12-19 07:59] VITALS: BP 124/76
--- NOTE | 2018-12-19 08:20 | NUR ---
PT RESTING IN BED. NO ACUTE DISTRESS NOTED. RIGHT IJ INTACT WITH 1/2 NS @ 50ML/HR INFUSING VIA PUMP. SITE WITHOUT REDNESS OR EDEMA. LEFT UPPER ARM MIDLINE INTACT WITH PROCAL @75 ML/HR, SITE WITHOUT REDNESS OR EDEMA. MIDLINE INCISIONS WITH ERIKA INTACT EDGES WELL APPROXIMATED. WOUND VAC INTACT. MELODY DRAIN TO RIGHT SIDE X 2, MELODY DRAIN TO LEFT SIDE INTACT. REPORTS PAIN 3/10 AT THIS TIME. DENIES FURTHER NEEDS AT THIS TIME. CL WITHIN REACH. ENCOURAGED TO CALL WITH NEEDS. CONTINUE POC
[2018-12-19 09:33] LABS: EOSINOPHILS 4 % (0-7); LYMPHOCYTES 33 % (15-50); MONOCYTES 5 % (2-11); NEUTROPHILS 54 % (40-80); PLATELET ESTIMATE NORMAL; PLATELET MORPHOLOGY PLT CLUMPS PRESENT
[2018-12-19 09:34] LABS: ANISOCYTOSIS OCC; ROULEAUX OCC
--- NOTE | 2018-12-19 11:58 | NUR ---
OT NOTE: ATTEMPTED X 2 THIS AM. PT INITIALLY GETTING IV REMOVED. CHECKED LATER IN AM AND PT HAD DIARRHEA EVERY TIME SHE STOOD UP. WILL ATTEMPT LATER. PT UP IN CHAIR. SYEDA MONTES DE OCA, OTR/L
[2018-12-19 12:54] VITALS: BP 118/65
--- NOTE | 2018-12-19 13:33 | NUR ---
Nutrition follow-up: Diet advanced to consistent CHO PO intake ~25-50% of meals Labs reviewed Wt: 376# Wound VAC to incision + loose stools RDN following.
--- NOTE | 2018-12-19 13:37 | NUR ---
WOUND VAC DRESSING CHANGE DATE: 12/19/18 WOUND LOCATION: midline abd WOUND MEASUREMENTS: 5.5cm x 4cm x 4cm WOUND DESCRIPTION: red/clean MUSCLE, TENDON, OR BONE EXPOSED? suqQ tissue DRAINAGE AMOUNT/DESCRIPTION: moderate serosanguinous ODOR? no TYPE OF SPONGE USED AND AMOUNT: 1 black SETTINGS: -125mmhg low continuous TEACHING: vac changes at home Pt tolerated well.
[2018-12-19 15:37] VITALS: BP 124/68
--- NOTE | 2018-12-19 19:40 | NUR ---
LYING IN BED WATCHING TV. ALERT AND ORIENTED X4. RESP EVEN AND NONLABORED. DENIES PAIN AT THIS TIME. ERIKA NOTED TO ABD INCISION. WOUND VAC TO ABD TO 125MMHG CONTINUOUS SUCTION WITH BLOODY DRAINAGE IN CANISTER. MELODY DRAIN NOTED TO LLQ WITH SEROSANGUINEOUS DRAINAGE IN BULB. DRSG NOTED TO RT ABD FROM WHERE MELODY X2 WAS PULLED TODAY. BS ARE HYPOACTIVE. ABD BINDER IN USE. 1/2 NS @ 30 MLHR INFUSING IN LT UPPER ARM MIDLINE. MOTHER AT BEDSIDE. SR ELEVATED X2. CL IN REACH. GEN WEAKNESS NOTED. AMB WITH STANDBY ASSIST.
[2018-12-19 19:54] VITALS: BP 127/59
--- NOTE | 2018-12-19 21:00 | NUR ---
ASISSTED UP TO BSC TO VOID. URGE INCONTINENCE NOTED. LINENS CHANGED. ASSISTED BACK TO BED. MEDICATED WITH NORCO FOR C/O ABD PAIN. MOTHER AT BEDSIDE. CL IN REACH.
--- NOTE | 2018-12-20 01:00 | NUR ---
RESTING QUIETLY WITH EYES CLOSED. RESP EVEN AND NONLABORED. MOTHER AT BEDSIDE. CL IN REACH. NO DISTRESS.
[2018-12-20 05:01] VITALS: BP 112/49
--- NOTE | 2018-12-20 06:04 | NUR ---
UP TO BSC. DIARRHEA NOTED MIXED WITH URINE.
[2018-12-20 06:47] LABS: BASOPHILS 0.1 % (0-2); EOSINOPHILS 2.2 % (0-7); HEMATOCRIT 27.8 % (36.0-48.0); HEMOGLOBIN 8.8 g/dL (12-16); IMMATURE GRANULOCYTES 2.6 % (0-5); LYMPHOCYTES 22.8 % (15-50); MCH 25.1 pg (26.0-34.0); MCHC 31.7 g/dL (31.0-37.0); MCV 79.4 fL (80.0-100.0); MEAN PLATELET VOLUME 10.3 fL (7.4-10.4); MONOCYTES 7.2 % (2-11); NEUTROPHILS 65.1 % (40-80); PLATELET COUNT 168 10x3/uL (130-400); RDW 20.6 % (11.5-14.5); WBC 9.1 10x3/uL (4.8-10.8)
[2018-12-20 06:58] LABS: ANION GAP 11.7 mmol/L (8-16); CALCIUM 8.1 mg/dL (8.5-10.1); CARBON DIOXIDE 25.8 mmol/L (21.0-32.0); POTASSIUM - SERUM 3.5 mmol/L (3.5-5.1)
--- NOTE | 2018-12-20 07:10 | NUR ---
PT RESTING IN BED. FAMILY AT BEDSIDE. NO ACUTE DISTRESS NOTED AT THIS TIME. PT REPORTS PAIN 5/10 AT THIS TIME AND REQUEST PAIN MEDICATION. INFORMED PT PAIN MEDICATION TO BE ADMINISTERED PER MD ORDERS. IV TO LEFT UPPER ARM WITH 1/2 NS @ 30ML/HR INFUSING VIA PUMP. SITE WITHOUT REDNESS OR EDEMA. MIDLINE INCISION WITH ERIKA INTACT, EDGES WELL APPROXIMATED, WITHOUT DRAINAGE OR REDNESS. WOUND VAC INTACT TO OPEN AREA MID ABDOMEN. DENIES FURTHER NEEDS AT THIS TIME. CL WITHIN REACH. ENCOURAGED TO CALL WITH NEEDS. CONTINUE POC
[2018-12-20 08:38] VITALS: BP 123/54
[2018-12-20 12:46] VITALS: BP 129/63
[2018-12-20 16:12] VITALS: BP 135/60
--- NOTE | 2018-12-20 16:51 | MORECARE ---
CASE MANAGEMENT DISCHARGE SUMMARY PATIENT: AYESHA ROMAN UNIT: [id number] ADM DATE: 12/12/18 AGE: 38 : 80 SEX: F ROOM/BED: D.2210 AUTHOR: VIANNEY,DOC PHYSICIAN: REFERRING PHYSICIAN: JENNIFER ZAMORA MD DATE OF SERVICE: 12/20/18 Discharge Plan Patient Name: AYESHA ROMAN Facility: [facility]:[place] : 1980 Planned Disposition: Home Anticipated Discharge Date: Discharge Date: Expected LOS: Initial Reviewer: [email or web address] Initial Review Date: 12/13/2018 Generated: 12/20/18 5:51 pm Comments DCP- Discharge Planning Updated by [email or web address]: Jaki Melendez on 12/20/18 3:[address] Spoke with patient about putting a temp wound vac on that will need to be changed MW and she does not have transportation for that. CM will continue to follow and assist as needed DCP- Discharge Planning Updated by [email or web address]: Melonie Smith on 12/18/18 5:[address] LATE ENTRY 1030 CM RECEIVED A REQUEST TO SPEAK WITH THE PATIENT AND HER MOTHER AT THE BEDSIDE REGARDING DISCHARGE PLANNING. 1330 CM WENT TO THE ROOM. THE PATIENT WAS OOB IN THE CHAIR. SHE COMPLETED HER RESP TREATMENT. SHE STATED HER MOTHER, YAMILET , WANTED TO SPEAK WITH ME. SHE WAS NOT PRSENT IN THE ROOM OR HALLWAY THE PATIENT INDICATED. 1445 THE MOTHER CAME TO THE DESK. CM MET WITH HER IN THE CASE MANAGEMENT OFFICE. THE PATIENT REPORTEDLY HAS BEEN CONTACTED BY [employer]. CM NOTED MEDICAID PENDING. TC TO VERIFY. THE MOTHER IS CONCERNED REGARDING CARE AT DISCHARGE. CM ADVISED HOME HEALTH CAN BE ORDERD FOR SN. THE MOTHER IS IN A WHEELCHAIR. SHE IS LIMITED IN THE ASSISTANCE SHE CAN PROVIDE. CM ADVISED TO ASSIST WITH PROVIDING INFORMATION THAT [employer] REQUEST. 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 DEPENDING ON HER PROGRESS SHE MAY NEED A SKILLED SETTING. THE DISCHARGE PLAN IS FOR HOME. CM ALSO DISCUSSED WORKING WITH SOCIAL SECURITY REGARDING AN APPLICATION FOR DISABILITY DEPENDING ON RECOVERY TIME AND RESTRICTIONS AT DISCHARGE, CM PROVIDED THE 800 PHONE NUMBER FOR SOCIAL SECURITY. CM DISCUSSED MD PROVIDERS ON SERVICE TO DISCUSS POSSIBLE D/C NEEDS. CM ALSO ADVISED A CM IS AVAILABLE ON THE UNIT M-F TO ASSIST. EXPLAINED SHE NEED TO GET RELEASE OF INFORMATION FORMS. CM TO FOLLOW TO ASSIST. DCP- Discharge Planning Updated by [email or web address]: Marlin Stewart on 12/13/18 4:[address] Patient Name: AYESHA ROMAN Admission Status: Elective Accout number: [id number] Admission Date: 12-12-2018 : 1980 Admission Diagnosis: Attending: JENNIFER ZAMORA Current LOS: 1 Anticipated DC Date: Planned Disposition: Home Primary Insurance: UNINSURED DISCOUNT PLAN Discharge Planning Comments: CM met with patient and her Mother Yamilet at bedside after explaining CM role and obtaining verbal consent. Patient is drowsy at this time and will be having surgery later today. Patient lives at home with her three sons where she is independent with his care and plans to return there upon discharge. Patient feels this would be a safe discharge. CM discussed availability / needs of home health and medical equipment. Patient denies any discharge needs at this time. Uncertain as to what her needs will be at discharge. CM checked with Moisés with [employer] to see if patient has been evaluated for Medicaid. Moisés stated that they have not evaluated yet .Patient's mother stated she will have her family drive her home upon discharge. CM will continue to follow and assist as needed with discharge planning / needs. Devops Architect: Marlin Stewart DCPIA - Discharge Planning Initial Assessment Updated by [email or web address]: Marlin Stewart on 12/13/18 4:34 pm * Is the patient Alert and Oriented? Yes * How many steps to enter\exit or inside your home? * PCP LAURA SACNHEZ * Pharmacy [facility] * Preadmission Environment Home with Family * ADLs Independent * Equipment None * List name and contact numbers for known caregivers / representatives who currently or will assist patient after discharge: YAMILET DO - MOTHER - [phone] * Verbal permission to speak to the caregivers and representatives has been obtained from the patient. Yes * Community resources currently utilized None * Additional services required to return to the preadmission environment? No * Can the patient safely return to the preadmission environment? Yes * Has this patient been hospitalized within the prior 30 days at any hospital? No Last DP export: 12/18/18 5:33 p Patient Name: AYESHA ROMAN Page [id number] at 1651 All edits/amendments must be made on the electronic document DICTATION DATE: 12/20/181650 CODE NUMBER STAMPER: MARY 12/20/181650 RPT#: [id number] DC DATE: STATUS: ADM IN [facility] [address] [place] [address] END OF REPORT
[2018-12-20 17:08] LABS: AEROBE ID Final report (())
[2018-12-20 20:00] VITALS: BP 139/73
[2018-12-21] VITALS: BP 97/67
[2018-12-21 04:00] VITALS: BP 128/72
--- NOTE | 2018-12-21 04:28 | NUR ---
PATIENT IS ALERT AND ORENTED ABLE TO VOICE NEEDS AND WANTS TO STAFF. fAMILY AT BEDSIDE. LEFT ARM MIDLINE IN PLACE AND PATEN WITH 1/2 NS AT 30 ON ROOM AIR, ABD INSION WITH ERIKA ABD BINDER IN PLACE WOUND VAC TO MID ABD. MELODY DRAIN IN PLACE WITH BLOODY DRANAGE. TELEMENTRY [address] CALL LIFGT AND WATER IN REACH BED LOW., BED SIDE COMOD IN ROOM AT BEDSIDE,
[2018-12-21 06:32] LABS: BASOPHILS 0.1 % (0-2); EOSINOPHILS 1.4 % (0-7); HEMATOCRIT 27.3 % (36.0-48.0); HEMOGLOBIN 8.6 g/dL (12-16); IMMATURE GRANULOCYTES 1.2 % (0-5); LYMPHOCYTES 25.3 % (15-50); MCH 25.2 pg (26.0-34.0); MCHC 31.5 g/dL (31.0-37.0); MCV 80.1 fL (80.0-100.0); MEAN PLATELET VOLUME 10.4 fL (7.4-10.4); MONOCYTES 7.1 % (2-11); NEUTROPHILS 64.9 % (40-80); PLATELET COUNT 166 10x3/uL (130-400); RBC 3.41 10x6/uL (4.00-5.40); RDW 21.2 % (11.5-14.5); WBC 9.1 10x3/uL (4.8-10.8)
[2018-12-21 07:17] LABS: ANION GAP 12.6 mmol/L (8-16); CALCIUM 8.2 mg/dL (8.5-10.1); CARBON DIOXIDE 24.8 mmol/L (21.0-32.0); CREATININE - SERUM 0.9 mg/dL (0.6-1.3); POTASSIUM - SERUM 3.4 mmol/L (3.5-5.1)
--- NOTE | 2018-12-21 07:58 | NUR ---
PT RESTING IN BED. AROUSED BY VERBAL STIMULI. MOTHER AT BEDSIDE. NO S/S OF ACUTE DISTRESS. CL IN PLACE.
[2018-12-21 08:19] VITALS: BP 129/75
--- NOTE | 2018-12-21 10:49 | MORECARE ---
CASE MANAGEMENT DISCHARGE SUMMARY PATIENT: AYESHA ROMAN UNIT: [id number] ADM DATE: 12/12/18 AGE: 38 : 80 SEX: F ROOM/BED: D.2210 AUTHOR: VIANNEY,DOC PHYSICIAN: REFERRING PHYSICIAN: JENNIFER ZAMORA MD DATE OF SERVICE: 12/21/18 Discharge Plan Patient Name: AYESHA ROMAN Facility: [facility]:[place] : 1980 Planned Disposition: Home Anticipated Discharge Date: Discharge Date: Expected LOS: Initial Reviewer: [email or web address] Initial Review Date: 12/13/2018 Generated: 12/21/18 11:49 am DCP- Discharge Planning Updated by [email or web address]: Jaki Melendez on 12/20/18 3:[address] Spoke with patient about putting a temp wound vac on that will need to be changed MW and she does not have transportation for that. CM will continue to follow and assist as needed DCP- Discharge Planning Updated by [email or web address]: Melonie Smith on 12/18/18 5:[address] LATE ENTRY 1030 CM RECEIVED A REQUEST TO SPEAK WITH THE PATIENT AND HER MOTHER AT THE BEDSIDE REGARDING DISCHARGE PLANNING. 1330 CM WENT TO THE ROOM. THE PATIENT WAS OOB IN THE CHAIR. SHE COMPLETED HER RESP TREATMENT. SHE STATED HER MOTHER, YAMILET , WANTED TO SPEAK WITH ME. SHE WAS NOT PRSENT IN THE ROOM OR HALLWAY THE PATIENT INDICATED. 1445 THE MOTHER CAME TO THE DESK. CM MET WITH HER IN THE CASE MANAGEMENT OFFICE. THE PATIENT REPORTEDLY HAS BEEN CONTACTED BY [employer]. CM NOTED MEDICAID PENDING. TC TO VERIFY. THE MOTHER IS CONCERNED REGARDING CARE AT DISCHARGE. CM ADVISED HOME HEALTH CAN BE ORDERD FOR SN. THE MOTHER IS IN A WHEELCHAIR. SHE IS LIMITED IN THE ASSISTANCE SHE CAN PROVIDE. CM ADVISED TO ASSIST WITH PROVIDING INFORMATION THAT [employer] REQUEST. 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 DEPENDING ON HER PROGRESS SHE MAY NEED A SKILLED SETTING. THE DISCHARGE PLAN IS FOR HOME. CM ALSO DISCUSSED WORKING WITH SOCIAL SECURITY REGARDING AN APPLICATION FOR DISABILITY DEPENDING ON RECOVERY TIME AND RESTRICTIONS AT DISCHARGE, CM PROVIDED THE 800 PHONE NUMBER FOR SOCIAL SECURITY. CM DISCUSSED MD PROVIDERS ON SERVICE TO DISCUSS POSSIBLE D/C NEEDS. CM ALSO ADVISED A CM IS AVAILABLE ON THE UNIT M-F TO ASSIST. EXPLAINED SHE NEED TO GET RELEASE OF INFORMATION FORMS. CM TO FOLLOW TO ASSIST. DCP- Discharge Planning Updated by [id number]: Marlin Stewart on 12/13/18 4:[address] Patient Name: AYESHA ROMAN Admission Status: Elective Accout number: [id number] Admission Date: 12-12-2018 : 1980 Admission Diagnosis: Attending: JENNIFER ZAMORA Current LOS: 1 Anticipated DC Date: Planned Disposition: Home Primary Insurance: UNINSURED DISCOUNT PLAN Discharge Planning Comments: CM met with patient and her Mother Yamilet at bedside after explaining CM role and obtaining verbal consent. Patient is drowsy at this time and will be having surgery later today. Patient lives at home with her three sons where she is independent with his care and plans to return there upon discharge. Patient feels this would be a safe discharge. CM discussed availability / needs of home health and medical equipment. Patient denies any discharge needs at this time. Uncertain as to what her needs will be at discharge. CM checked with Moisés with [employer] to see if patient has been evaluated for Medicaid. Moisés stated that they have not evaluated yet .Patient's mother stated she will have her family drive her home upon discharge. CM will continue to follow and assist as needed with discharge planning / needs. Pipe Fitter [employer]: Marlin Stewart DCPIA - Discharge Planning Initial Assessment Updated by [email or web address]: Marlin Stewart on 12/13/18 4:34 pm * Is the patient Alert and Oriented? Yes * How many steps to enter\exit or inside your home? * PCP LAURA SANCHEZ * Pharmacy [facility] * Preadmission Environment Home with Family * ADLs Independent * Equipment None * List name and contact numbers for known caregivers / representatives who currently or will assist patient after discharge: YAMILET DO - MOTHER - [phone] * Verbal permission to speak to the caregivers and representatives has been obtained from the patient. Yes * Community resources currently utilized None * Additional services required to return to the preadmission environment? No * Can the patient safely return to the preadmission environment? Yes * Has this patient been hospitalized within the prior 30 days at any hospital? No External Providers [facility] Next Contact Date: Service Request Date: Service Type: Resolution: Reviewer: Comments: Last DP export: 12/20/18 3:51 p Patient Name: AYESHA ROMAN Page [id number] at 1049 All edits/amendments must be made on the electronic document DICTATION DATE: 12/21/18 104 SYSTEMS ENGINEERING MANAGER: MARY 12/21/18 1049 RPT#: [id number] NM DATE: STATUS: ADM IN [facility] [address] [place] [address] END OF REPORT
--- NOTE | 2018-12-21 11:30 | MORECARE ---
CASE MANAGEMENT DISCHARGE SUMMARY PATIENT: AYESHA ROMAN UNIT: [id number] ADM DATE: 12/12/18 AGE: 38 : 80 SEX: F ROOM/BED: D.2210 AUTHOR: VIANNEY,DOC PHYSICIAN: REFERRING PHYSICIAN: JENNIFER ZAMORA MD DATE OF SERVICE: 12/21/18 Discharge Plan Patient Name: AYESHA ROMAN Facility: [facility]:[place] : 1980 Planned Disposition: Home Anticipated Discharge Date: Discharge Date: Expected LOS: Initial Reviewer: [email or web address] Initial Review Date: 12/13/2018 Generated: 12/21/18 12:29 pm Comments DCP- Discharge Planning Updated by [email or web address]: Jaki Melendez on 12/21/18 10:[address] Spoke with [facility] and [employer] [facility] to see if they will do indigent cases, both stated that they will look at it. [facility] sent a vasu form, I have given it to the Patient to fill out and I will send it in. DCP- Discharge Planning Updated by [id number]: Jaki Melendez on 12/20/18 3:[address] Spoke with patient about putting a temp wound vac on that will need to be changed [facility] and she does not have transportation for that. CM will continue to follow and assist as needed DCP- Discharge Planning Updated by [email or web address]: Melonie Smith on 12/18/18 5:[address] LATE ENTRY 1030 CM RECEIVED A REQUEST TO SPEAK WITH THE PATIENT AND HER MOTHER AT THE BEDSIDE REGARDING DISCHARGE PLANNING. 1330 CM WENT TO THE ROOM. THE PATIENT WAS OOB IN THE CHAIR. SHE COMPLETED HER RESP TREATMENT. SHE STATED HER MOTHER, YAMILET , WANTED TO SPEAK WITH ME. SHE WAS NOT PRSENT IN THE ROOM OR HALLWAY THE PATIENT INDICATED. 1445 THE MOTHER CAME TO THE DESK. CM MET WITH HER IN THE CASE MANAGEMENT OFFICE. THE PATIENT REPORTEDLY HAS BEEN CONTACTED BY [employer]. CM NOTED MEDICAID PENDING. TC TO VERIFY. THE MOTHER IS CONCERNED REGARDING CARE AT DISCHARGE. CM ADVISED HOME HEALTH CAN BE ORDERD FOR SN. THE MOTHER IS IN A WHEELCHAIR. SHE IS LIMITED IN THE ASSISTANCE SHE CAN PROVIDE. CM ADVISED TO ASSIST WITH PROVIDING INFORMATION THAT [employer] REQUEST. 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 DEPENDING ON HER PROGRESS SHE MAY NEED A SKILLED SETTING. THE DISCHARGE PLAN IS FOR HOME. CM ALSO DISCUSSED WORKING WITH SOCIAL SECURITY REGARDING AN APPLICATION FOR DISABILITY DEPENDING ON RECOVERY TIME AND RESTRICTIONS AT DISCHARGE, CM PROVIDED THE 800 PHONE NUMBER FOR SOCIAL SECURITY. CM DISCUSSED MD PROVIDERS ON SERVICE TO DISCUSS POSSIBLE D/C NEEDS. CM ALSO ADVISED A CM IS AVAILABLE ON THE UNIT M-F TO ASSIST. EXPLAINED SHE NEED TO GET RELEASE OF INFORMATION FORMS. CM TO FOLLOW TO ASSIST. DCP- Discharge Planning Updated by [id number]: Marlin Stewart on 12/13/18 4:[address] Patient Name: AYESHA ROMAN Admission Status: Elective Accout number: [id number] Admission Date: 12-12-2018 : 1980 Admission Diagnosis: Attending: JENNIFER ZAMORA Current LOS: 1 Anticipated DC Date: Planned Disposition: Home Primary Insurance: UNINSURED DISCOUNT PLAN Discharge Planning Comments: CM met with patient and her Mother Yamilet at bedside after explaining CM role and obtaining verbal consent. Patient is drowsy at this time and will be having surgery later today. Patient lives at home with her three sons where she is independent with his care and plans to return there upon discharge. Patient feels this would be a safe discharge. CM discussed availability / needs of home health and medical equipment. Patient denies any discharge needs at this time. Uncertain as to what her needs will be at discharge. CM checked with Moisés with [employer] to see if patient has been evaluated for Medicaid. Moisés stated that they have not evaluated yet .Patient's mother stated she will have her family drive her home upon discharge. CM will continue to follow and assist as needed with discharge planning / needs. Over The Road Driver: Marlin Stewart DCPIA - Discharge Planning Initial Assessment Updated by [email or web address]: Marlin Stewart on 12/13/18 4:34 pm * Is the patient Alert and Oriented? Yes * How many steps to enter\exit or inside your home? * PCP LAURA SANCHEZ * Pharmacy [facility] * Preadmission Environment Home with Family * ADLs Independent * Equipment None * List name and contact numbers for known caregivers / representatives who currently or will assist patient after discharge: YAMILET DO - MOTHER - [phone] * Verbal permission to speak to the caregivers and representatives has been obtained from the patient. Yes * Community resources currently utilized None * Additional services required to return to the preadmission environment? No * Can the patient safely return to the preadmission environment? Yes * Has this patient been hospitalized within the prior 30 days at any hospital? No Last DP export: 12/21/18 9:49 a Patient Name: AYESHA ROMAN Page [id number] at 1130 All edits/amendments must be made on the electronic document DICTATION DATE: 12/21/18 112 CAKE TESTER: MARY 12/21/18 112 RPT#: [id number] DC DATE: STATUS: ADM IN [facility] [address] [place] [address] END OF REPORT
--- NOTE | 2018-12-21 11:57 | MORECARE ---
CASE MANAGEMENT DISCHARGE SUMMARY PATIENT: AYESHA ROMAN UNIT: [id number] ADM DATE: 12/12/18 AGE: 38 : 80 SEX: F ROOM/BED: D.2210 AUTHOR: VIANNEY,DOC PHYSICIAN: REFERRING PHYSICIAN: JENNIFER ZAMORA MD DATE OF SERVICE: 12/21/18 Discharge Plan Patient Name: AYESHA ROMAN Facility: [facility]:[place] : 1980 Planned Disposition: Home Anticipated Discharge Date: Discharge Date: Expected LOS: Initial Reviewer: [email or web address] Initial Review Date: 12/13/2018 Generated: 12/21/18 12:57 pm Comments DCP- Discharge Planning Updated by [email or web address]: Jaki Melendez on 12/21/18 10:[address] Spoke with [facility] and [facility] to see if they will do indigent cases, both stated that they will look at it. [facility] sent a vasu form, I have given it to the Patient to fill out and I will send it in. DCP- Discharge Planning Updated by [email or web address]: Jaki Melendez on 12/20/18 3:[address] Spoke with patient about putting a temp wound vac on that will need to be changed [facility] and she does not have transportation for that. CM will continue to follow and assist as needed DCP- Discharge Planning Updated by [id number]: Melonie Smith on 12/18/18 5:[address] LATE ENTRY 1030 CM RECEIVED A REQUEST TO SPEAK WITH THE PATIENT AND HER MOTHER AT THE BEDSIDE REGARDING DISCHARGE PLANNING. 1330 CM WENT TO THE ROOM. THE PATIENT WAS OOB IN THE CHAIR. SHE COMPLETED HER RESP TREATMENT. SHE STATED HER MOTHER, YAMILET , WANTED TO SPEAK WITH ME. SHE WAS NOT PRSENT IN THE ROOM OR HALLWAY THE PATIENT INDICATED. 1445 THE MOTHER CAME TO THE DESK. CM MET WITH HER IN THE CASE MANAGEMENT OFFICE. THE PATIENT REPORTEDLY HAS BEEN CONTACTED BY [employer]. CM NOTED MEDICAID PENDING. TC TO VERIFY. THE MOTHER IS CONCERNED REGARDING CARE AT DISCHARGE. CM ADVISED HOME HEALTH CAN BE ORDERD FOR SN. THE MOTHER IS IN A WHEELCHAIR. SHE IS LIMITED IN THE ASSISTANCE SHE CAN PROVIDE. CM ADVISED TO ASSIST WITH PROVIDING INFORMATION THAT MED DATA REQUEST. 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 DEPENDING ON HER PROGRESS SHE MAY NEED A SKILLED SETTING. THE DISCHARGE PLAN IS FOR HOME. CM ALSO DISCUSSED WORKING WITH SOCIAL SECURITY REGARDING AN APPLICATION FOR DISABILITY DEPENDING ON RECOVERY TIME AND RESTRICTIONS AT DISCHARGE, CM PROVIDED THE 800 PHONE NUMBER FOR SOCIAL SECURITY. CM DISCUSSED MD PROVIDERS ON SERVICE TO DISCUSS POSSIBLE D/C NEEDS. CM ALSO ADVISED A CM IS AVAILABLE ON THE UNIT M-F TO ASSIST. EXPLAINED SHE NEED TO GET RELEASE OF INFORMATION FORMS. CM TO FOLLOW TO ASSIST. DCP- Discharge Planning Updated by [id number]: Marlin Stewart on 12/13/18 4:[address] Patient Name: AYESHA ROMAN Admission Status: Elective Accout number: [id number] Admission Date: 12-12-2018 : 1980 Admission Diagnosis: Attending: JENNIFER ZAMORA Current LOS: 1 Anticipated DC Date: Planned Disposition: Home Primary Insurance: UNINSURED DISCOUNT PLAN Discharge Planning Comments: CM met with patient and her Mother Yamilet at bedside after explaining CM role and obtaining verbal consent. Patient is drowsy at this time and will be having surgery later today. Patient lives at home with her three sons where she is independent with his care and plans to return there upon discharge. Patient feels this would be a safe discharge. CM discussed availability / needs of home health and medical equipment. Patient denies any discharge needs at this time. Uncertain as to what her needs will be at discharge. CM checked with Moisés with [employer] to see if patient has been evaluated for Medicaid. Moisés stated that they have not evaluated yet .Patient's mother stated she will have her family drive her home upon discharge. CM will continue to follow and assist as needed with discharge planning / needs. Cloth Desizing Range Operator Chief: Marlin Stewart DCPIA - Discharge Planning Initial Assessment Updated by [email or web address]: Marlin Stewart on 12/13/18 4:34 pm * Is the patient Alert and Oriented? Yes * How many steps to enter\exit or inside your home? * PCP LAURA SANCHEZ * [facility] * Preadmission Environment Home with Family * ADLs Independent * Equipment None * List name and contact numbers for known caregivers / representatives who currently or will assist patient after discharge: YAMILET DO - MOTHER - [phone] * Verbal permission to speak to the caregivers and representatives has been obtained from the patient. Yes * Community resources currently utilized None * Additional services required to return to the preadmission environment? No * Can the patient safely return to the preadmission environment? Yes * Has this patient been hospitalized within the prior 30 days at any hospital? No External Providers External Provider: [facility] [employer] Next Contact Date: Service Request Date: Service Type: Resolution: Reviewer: Comments: Last DP export: 12/21/18 10:30 a Patient Name: AYESHA ROMAN Page 61263 at 1157 All edits/amendments must be made on the electronic document DICTATION DATE: 12/21/181155 DIRECTOR OF TEENAGE ACTIVITIES: MARY 12/21/18 115 RPT#: [id number] DC DATE: STATUS: ADM IN [facility] [address] [place] [address] END OF REPORT
--- NOTE | 2018-12-21 12:04 | MORECARE ---
CASE MANAGEMENT DISCHARGE SUMMARY PATIENT: AYESHA ROMAN UNIT: [id number] ADM DATE: 12/12/18 AGE: 38 : 80 SEX: F ROOM/BED: D.2210 AUTHOR: VIANNEY,DOC PHYSICIAN: REFERRING PHYSICIAN: JENNIFER ZAMORA MD DATE OF SERVICE: 12/21/18 Discharge Plan Patient Name: AYESHA ROMAN Facility: [facility]:[place] : 1980 Planned Disposition: Home Anticipated Discharge Date: Discharge Date: Expected LOS: Initial Reviewer: [email or web address] Initial Review Date: 12/13/2018 Generated: 12/21/18 1:03 pm Comments DCP- Discharge Planning Updated by [email or web address]: Jaki Melendez on 12/21/18 11:[address] [facility] approved this patient for home health and will do dressing changes 3 days a week. If her SHENG is not approved they will have to stop seeing patient. Dr Andres has also offered to change the wound vac in his office. CM will continue to follow and assist with dc planning DCP- Discharge Planning Updated by [id number]: Jaki Melendez on 12/21/18 10:[address] Spoke with [facility] and [facility] to see if they will do indigent cases, both stated that they will look at it. [facility] sent a vasu form, I have given it to the Patient to fill out and I will send it in. DCP- Discharge Planning Updated by [email or web address]: Jaki Melendez on 12/20/18 3:[address] Spoke with patient about putting a temp wound vac on that will need to be changed [facility] and she does not have transportation for that. CM will continue to follow and assist as needed DCP- Discharge Planning Updated by [id number]: Melonie Smith on 12/18/18 5:[address] LATE ENTRY 1030 CM RECEIVED A REQUEST TO SPEAK WITH THE PATIENT AND HER MOTHER AT THE BEDSIDE REGARDING DISCHARGE PLANNING. 1330 CM WENT TO THE ROOM. THE PATIENT WAS OOB IN THE CHAIR. SHE COMPLETED HER RESP TREATMENT. SHE STATED HER MOTHER, YAMILET , WANTED TO SPEAK WITH ME. SHE WAS NOT PRSENT IN THE ROOM OR HALLWAY THE PATIENT INDICATED. 1445 THE MOTHER CAME TO THE DESK. CM MET WITH HER IN THE CASE MANAGEMENT OFFICE. THE PATIENT REPORTEDLY HAS BEEN CONTACTED BY [employer]. CM NOTED MEDICAID PENDING. TC TO VERIFY. THE MOTHER IS CONCERNED REGARDING CARE AT DISCHARGE. CM ADVISED HOME HEALTH CAN BE ORDERD FOR SN. THE MOTHER IS IN A WHEELCHAIR. SHE IS LIMITED IN THE ASSISTANCE SHE CAN PROVIDE. CM ADVISED TO ASSIST WITH PROVIDING INFORMATION THAT [employer] DATA REQUEST. 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 DEPENDING ON HER PROGRESS SHE MAY NEED A SKILLED SETTING. THE DISCHARGE PLAN IS FOR HOME. CM ALSO DISCUSSED WORKING WITH SOCIAL SECURITY REGARDING AN APPLICATION FOR DISABILITY DEPENDING ON RECOVERY TIME AND RESTRICTIONS AT DISCHARGE, CM PROVIDED THE 800 PHONE NUMBER FOR SOCIAL SECURITY. CM DISCUSSED MD PROVIDERS ON SERVICE TO DISCUSS POSSIBLE D/C NEEDS. CM ALSO ADVISED A CM IS AVAILABLE ON THE UNIT M-F TO ASSIST. EXPLAINED SHE NEED TO GET RELEASE OF INFORMATION FORMS. CM TO FOLLOW TO ASSIST. DCP- Discharge Planning Updated by [id number]: Marlin Stewart on 12/13/18 4:[address] Patient Name: AYESHA ROMAN Admission Status: Elective Accout number: [id number] Admission Date: 12-12-2018 : 1980 Admission Diagnosis: Attending: JENNIFER ZAMORA Current LOS: 1 Anticipated DC Date: Planned Disposition: Home Primary Insurance: UNINSURED DISCOUNT PLAN Discharge Planning Comments: CM met with patient and her Mother Yamilet at bedside after explaining CM role and obtaining verbal consent. Patient is drowsy at this time and will be having surgery later today. Patient lives at home with her three sons where she is independent with his care and plans to return there upon discharge. Patient feels this would be a safe discharge. CM discussed availability / needs of home health and medical equipment. Patient denies any discharge needs at this time. Uncertain as to what her needs will be at discharge. CM checked with Moisés with [employer] to see if patient has been evaluated for Medicaid. Moisés stated that they have not evaluated yet .Patient's mother stated she will have her family drive her home upon discharge. CM will continue to follow and assist as needed with discharge planning / needs. Sheet Metal Smith: Marlin Stewart DCPIA - Discharge Planning Initial Assessment Updated by [id number]: Marlin Stewart on 12/13/18 4:34 pm * Is the patient Alert and Oriented? Yes * How many steps to enter\exit or inside your home? * PCP LAURA SANCHEZ * [facility]acy [facility] * Preadmission Environment Home with Family * ADLs Independent * Equipment None * List name and contact numbers for known caregivers / representatives who currently or will assist patient after discharge: YAMILET DO - MOTHER - [phone] * Verbal permission to speak to the caregivers and representatives has been obtained from the patient. Yes * Community resources currently utilized None * Additional services required to return to the preadmission environment? No * Can the patient safely return to the preadmission environment? Yes * Has this patient been hospitalized within the prior 30 days at any hospital? No Last DP export: 12/21/18 10:57 a Patient Name: AYESHA ROMAN Page [id number] at 1204 All edits/amendments must be made on the electronic document DICTATION DATE: 12/21/181202 INSTRUCTION ASSISTANT PRINCIPAL: MARY 12/21/181202 RPT#: [id number] DC DATE: STATUS: ADM IN [facility] [address] [place] [address] END OF REPORT
--- NOTE | 2018-12-21 12:38 | NUR ---
WOUND VAC DRESSING CHANGE DATE: 12/21/18 WOUND LOCATION:midline abdomen WOUND MEASUREMENTS: 5cm x 4cm x 4cm (improved) WOUND DESCRIPTION: pink MUSCLE, TENDON, OR BONE EXPOSED? no DRAINAGE AMOUNT/DESCRIPTION: moderate serosanguinous ODOR? no TYPE OF SPONGE USED AND AMOUNT: 1 black SETTINGS: -125mmhg low continuous TEACHING: home vac use and home health plus trouble shooting. Pt tolerated well.
[2018-12-21 12:45] VITALS: BP 120/61
--- NOTE | 2018-12-21 13:00 | MORECARE ---
CASE MANAGEMENT DISCHARGE SUMMARY PATIENT: AYESHA ROMAN UNIT: [id number] ADM DATE: 12/12/18 AGE: 38 : 80 SEX: F ROOM/BED: D.2210 AUTHOR: VIANNEY,DOC PHYSICIAN: REFERRING PHYSICIAN: JENNIFER ZAMORA MD DATE OF SERVICE: 12/21/18 Discharge Plan Patient Name: AYESHA ROMAN Facility: [facility]:[place] : 1980 Planned Disposition: Home Anticipated Discharge Date: Discharge Date: Expected LOS: Initial Reviewer: [email or web address] Initial Review Date: 12/13/2018 Generated: 12/21/18 1:59 pm Comments DCP- Discharge Planning Updated by [email or web address]: Jaki Melendez on 12/21/18 11:[address] [facility] DCP- Discharge Planning Updated by [email or web address]: Jaki Melendez on 12/21/18 11:[address] [facility] has approved this patient for home health and will do dressing changes 3 days a week. If her SHENG is not approved they will have to stop seeing patient. Dr Andres has also offered to change the wound vac in his office. CM will continue to follow and assist with dc planning DCP- Discharge Planning Updated by [email or web address]: Jaki Melendez on 12/21/18 10:[address] Spoke with [facility] and [facility] to see if they will do indigent cases, both stated that they will look at it. [facility] sent a vasu form, I have given it to the Patient to fill out and I will send it in. DCP- Discharge Planning Updated by [id number]: Jaki Melendez on 12/20/18 3:[address] Spoke with patient about putting a temp wound vac on that will need to be changed [facility] and she does not have transportation for that. CM will continue to follow and assist as needed DCP- Discharge Planning Updated by [id number]: Melonie Smith on 12/18/18 5:[address] LATE ENTRY 1030 CM RECEIVED A REQUEST TO SPEAK WITH THE PATIENT AND HER MOTHER AT THE BEDSIDE REGARDING DISCHARGE PLANNING. 1330 CM WENT TO THE ROOM. THE PATIENT WAS OOB IN THE CHAIR. SHE COMPLETED HER RESP TREATMENT. SHE STATED HER MOTHER, YAMILET , WANTED TO SPEAK WITH ME. SHE WAS NOT PRSENT IN THE ROOM OR HALLWAY THE PATIENT INDICATED. 1445 THE MOTHER CAME TO THE DESK. CM MET WITH HER IN THE CASE MANAGEMENT OFFICE. THE PATIENT REPORTEDLY HAS BEEN CONTACTED BY [email or web address]. CM NOTED MEDICAID PENDING. TC TO VERIFY. THE MOTHER IS CONCERNED REGARDING CARE AT DISCHARGE. CM ADVISED HOME HEALTH CAN BE ORDERD FOR SN. THE MOTHER IS IN A WHEELCHAIR. SHE IS LIMITED IN THE ASSISTANCE SHE CAN PROVIDE. CM ADVISED TO ASSIST WITH PROVIDING INFORMATION THAT [email or web address] REQUEST. 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 DEPENDING ON HER PROGRESS SHE MAY NEED A SKILLED SETTING. THE DISCHARGE PLAN IS FOR HOME. CM ALSO DISCUSSED WORKING WITH SOCIAL SECURITY REGARDING AN APPLICATION FOR DISABILITY DEPENDING ON RECOVERY TIME AND RESTRICTIONS AT DISCHARGE, CM PROVIDED THE 800 PHONE NUMBER FOR SOCIAL SECURITY. CM DISCUSSED MD PROVIDERS ON SERVICE TO DISCUSS POSSIBLE D/C NEEDS. CM ALSO ADVISED A CM IS AVAILABLE ON THE UNIT M-F TO ASSIST. EXPLAINED SHE NEED TO GET RELEASE OF INFORMATION FORMS. CM TO FOLLOW TO ASSIST. DCP- Discharge Planning Updated by [id number]: Marlin Stewart on 12/13/18 4:[address] Patient Name: AYESHA ROMAN Admission Status: Elective Accout number: [id number] Admission Date: 12-12-2018 : 1980 Admission Diagnosis: Attending: JENNIFER ZAMORA Current LOS: 1 Anticipated DC Date: Planned Disposition: Home Primary Insurance: UNINSURED DISCOUNT PLAN Discharge Planning Comments: CM met with patient and her Mother Yamilet at bedside after explaining CM role and obtaining verbal consent. Patient is drowsy at this time and will be having surgery later today. Patient lives at home with her three sons where she is independent with his care and plans to return there upon discharge. Patient feels this would be a safe discharge. CM discussed availability / needs of home health and medical equipment. Patient denies any discharge needs at this time. Uncertain as to what her needs will be at discharge. CM checked with Moisés with [employer] to see if patient has been evaluated for Medicaid. Moisés stated that they have not evaluated yet .Patient's mother stated she will have her family drive her home upon discharge. CM will continue to follow and assist as needed with discharge planning / needs. Boil Off Worker: Marlin Stewart DCPIA - Discharge Planning Initial Assessment Updated by [email or web address]: Marlin Stewart on 12/13/18 4:34 pm * Is the patient Alert and Oriented? Yes * How many steps to enter\exit or inside your home? * PCP LAURA SANCHEZ * [facility]acy [facility] * Preadmission Environment Home with Family * ADLs Independent * Equipment None * List name and contact numbers for known caregivers / representatives who currently or will assist patient after discharge: YAMILET DO - [facility] - [phone] * Verbal permission to speak to the caregivers and representatives has been obtained from the patient. Yes * Community resources currently utilized None * Additional services required to return to the preadmission environment? No * Can the patient safely return to the preadmission environment? Yes * Has this patient been hospitalized within the prior 30 days at any hospital? No Last DP export: 12/21/18 11:04 a Patient Name: AYESHA ROMAN Page [id number] at 1300 All edits/amendments must be made on the electronic document DICTATION DATE: 12/21/18 1259 NAIL STICKER: MARY 12/21/18 1259 RPT#: [id number] DC DATE: STATUS: ADM IN [facility] [address] [place] [address] END OF REPORT
--- NOTE | 2018-12-21 14:16 | NUR ---
OT NOTE: SEVERAL ATTEMPTS MADE IN AM, HOWEVER, PT GETTING CLEANED AND THEN RECEIVING BREATHING TMT. PT DOING MUCH BETTER.. HAS BEEN EITHER SITTING ON EOB OR SITTING IN CHAIR FOR MOST OF DAY. ABLE TO KASHIF GOWN WITH SET UP; GROOMING WITH SET UP; ABLE TO KASHIF SOCKS WITH MIN ASSIST. IN ROOM AMBULATION WITH WALKER AND SBA BUT REQUIRES ASSIST FOR MANAGING IV POLE AND WOUND VAC. INDEP WITH BED MOB. SYEDA MONTES DE OCA,OTR/L
--- NOTE | 2018-12-21 14:36 | NUR ---
OT NOTE: PT COMPLETED SITTING BALANCE WITH SBA. PT COMPLETED SIT TO STAND WITH CGA. PT EXIBITED INCREASED I WITH FUNCTIONAL TASKS. THANK YOU, JONA TRONCOSO
[2018-12-21 16:05] VITALS: BP 121/73
[2018-12-21] MEDS ORDERED: HYDROCODON-ACE1 EAC7 PO (17:03)
[2018-12-21] MEDS ORDERED: SULFAMETHOXAZOL1 TA2 PO (17:03)
--- NOTE | 2018-12-21 17:21 | MORECARE ---
CASE MANAGEMENT DISCHARGE SUMMARY PATIENT: AYESHA ROMAN UNIT: [id number] ADM DATE: 12/12/18 AGE: 38 : 80 SEX: F ROOM/BED: D.2210 AUTHOR: VIANNEY,DOC PHYSICIAN: REFERRING PHYSICIAN: JENNIFER ZAMORA MD DATE OF SERVICE: 12/21/18 Discharge Plan Patient Name: AYESHA ROMAN Facility: [facility]:[place] : 1980 Planned Disposition: Home Anticipated Discharge Date: Discharge Date: Expected LOS: Initial Reviewer: [email or web address] Initial Review Date: 12/13/2018 Generated: 12/21/18 6:21 pm Comments DCP- Discharge Planning Updated by [id number]: Jayla Jackson on 12/21/18 4:[address] [facility] OFFICE Appended by Jayla Jackson on 12/21/2018 17:19 CDT: [facility] WILL SEE WEDNESDAY. CM FAXED DOCUMENTS TO [facility]. WOUND VAC RECIEVED AND [facility] DOCUMENTS SIGNED AND FAXED. CM TO FOLLOW AND ASSIST. DCP- Discharge Planning Updated by [email or web address]: Jaki Melendez on 12/21/18 11:[address] [facility] has approved this patient for home health and will do dressing changes 3 days a week. If her SHENG is not approved they will have to stop seeing patient. Dr Andres has also offered to change the wound vac in his office. CM will continue to follow and assist with dc planning DCP- Discharge Planning Updated by [email or web address]: Jaki Melendez on 12/21/18 10:[address] Spoke with [facility] and [facility] to see if they will do indigent cases, both stated that they will look at it. [facility] sent a vasu form, I have given it to the Patient to fill out and I will send it in. DCP- Discharge Planning Updated by [id number]: Jaki Melendez on 12/20/18 3:[address] Spoke with patient about putting a temp wound vac on that will need to be changed [facility] and she does not have transportation for that. CM will continue to follow and assist as needed DCP- Discharge Planning Updated by [id number]: Melonie Smith on 12/18/18 5:[address] LATE ENTRY 1030 CM RECEIVED A REQUEST TO SPEAK WITH THE PATIENT AND HER MOTHER AT THE BEDSIDE REGARDING DISCHARGE PLANNING. 1330 CM WENT TO THE ROOM. THE PATIENT WAS OOB IN THE CHAIR. SHE COMPLETED HER RESP TREATMENT. SHE STATED HER MOTHER, YAMILET , WANTED TO SPEAK WITH ME. SHE WAS NOT PRSENT IN THE ROOM OR HALLWAY THE PATIENT INDICATED. 1445 THE MOTHER CAME TO THE DESK. CM MET WITH HER IN THE CASE MANAGEMENT OFFICE. THE PATIENT REPORTEDLY HAS BEEN CONTACTED BY [employer]. CM NOTED MEDICAID PENDING. TC TO VERIFY. THE MOTHER IS CONCERNED REGARDING CARE AT DISCHARGE. CM ADVISED HOME HEALTH CAN BE ORDERD FOR SN. THE MOTHER IS IN A WHEELCHAIR. SHE IS LIMITED IN THE ASSISTANCE SHE CAN PROVIDE. CM ADVISED TO ASSIST WITH PROVIDING INFORMATION THAT [employer] REQUEST. 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 DEPENDING ON HER PROGRESS SHE MAY NEED A SKILLED SETTING. THE DISCHARGE PLAN IS FOR HOME. CM ALSO DISCUSSED WORKING WITH SOCIAL SECURITY REGARDING AN APPLICATION FOR DISABILITY DEPENDING ON RECOVERY TIME AND RESTRICTIONS AT DISCHARGE, CM PROVIDED THE 800 PHONE NUMBER FOR SOCIAL SECURITY. CM DISCUSSED MD PROVIDERS ON SERVICE TO DISCUSS POSSIBLE D/C NEEDS. CM ALSO ADVISED A CM IS AVAILABLE ON THE UNIT M-F TO ASSIST. EXPLAINED SHE NEED TO GET RELEASE OF INFORMATION FORMS. CM TO FOLLOW TO ASSIST. DCP- Discharge Planning Updated by [id number]: Marlin Stewart on 12/13/18 4:[address] Patient Name: AYESHA ROMAN Admission Status: Elective Accout number: [id number] Admission Date: 12-12-2018 : 1980 Admission Diagnosis: Attending: JENNIFER ZAMORA Current LOS: 1 Anticipated DC Date: Planned Disposition: Home Primary Insurance: UNINSURED DISCOUNT PLAN Discharge Planning Comments: CM met with patient and her Mother Yamilet at bedside after explaining CM role and obtaining verbal consent. Patient is drowsy at this time and will be having surgery later today. Patient lives at home with her three sons where she is independent with his care and plans to return there upon discharge. Patient feels this would be a safe discharge. CM discussed availability / needs of home health and medical equipment. Patient denies any discharge needs at this time. Uncertain as to what her needs will be at discharge. CM checked with Moisés with [facility] to see if patient has been evaluated for Medicaid. Moisés stated that they have not evaluated yet .Patient's mother stated she will have her family drive her home upon discharge. CM will continue to follow and assist as needed with discharge planning / needs. Stitch Marker: Marlin OMALLEY - Discharge Planning Initial Assessment Updated by [email or web address]: Marlin Stewart on 12/13/18 4:34 pm * Is the patient Alert and Oriented? Yes * How many steps to enter\exit or inside your home? * PCP LAURA SANCHEZ * [facility]acy [facility] * Preadmission Environment Home with Family * ADLs Independent * Equipment None * List name and contact numbers for known caregivers / representatives who currently or will assist patient after discharge: YAMILET DO - MOTHER - [phone] * Verbal permission to speak to the caregivers and representatives has been obtained from the patient. Yes * Community resources currently utilized None * Additional services required to return to the preadmission environment? No * Can the patient safely return to the preadmission environment? Yes * Has this patient been hospitalized within the prior 30 days at any hospital? No Last DP export: 12/21/18 12:00 p Patient Name: AYESHA ROMAN Page 35586 at 1721 All edits/amendments must be made on the electronic document DICTATION DATE: 12/21/181720 DREDGE DECKHAND: MARY 12/21/181720 RPT#: [id number] [place] DATE: STATUS: ADM IN [facility] [address] [place] [address] END OF REPORT
--- NOTE | 2018-12-21 18:42 | NUR ---
DC MIDLINE WITH TIP INTACT. CHANGED WOUND VAC AND PUT ON WOUND VAC FROM [employer]. WOUND VAC PLACED IN SOILED UTILITY. DC INSTRUCTIONS AND EDUCATION DONE. NO S/S OF ACUTE DISTRESS. MOTHER AT BEDSIDE. WAITING ON RIDE TO ARRIVE.
[2018-12-24 20:06] LABS: AEROBE ID Final report (())
[2018-12-28 15:10] LABS: AEROBE ID Final report (()); RESULT 1 Final report (())
--- NOTE | 2018-12-29 13:39 | MORECARE ---
CASE MANAGEMENT DISCHARGE SUMMARY PATIENT: AYESHA ROMAN UNIT: [id number] ADM DATE: 12/12/18 AGE: 38 : 80 SEX: F ROOM/BED: D.2210 AUTHOR: VIANNEY,DOC PHYSICIAN: REFERRING PHYSICIAN: JENNIFER ZAMORA MD DATE OF SERVICE: 12/29/18 Discharge Plan Patient Name: AYESHA ROMAN Facility: [facility]:[place] : 1980 Planned Disposition: Home Anticipated Discharge Date: Discharge Date: 12/21/2018 Expected LOS: 0 Initial Reviewer: [id number] Initial Review Date: 12/13/2018 Generated: 12/29/18 2:38 pm Comments DCP- Discharge Planning Updated by [email or web address]: Jayla Jackson on 12/21/18 4:[address] [facility] OFFICE Appended by Jayla Jackson on 12/21/2018 17:19 CDT: [facility] WILL SEE WEDNESDAY. CM FAXED DOCUMENTS TO [facility]. WOUND VAC RECIEVED AND [facility] DOCUMENTS SIGNED AND FAXED. CM TO FOLLOW AND ASSIST. DCP- Discharge Planning Updated by [id number]: Jaki Melendez on 12/21/18 11:[address] [employer] has approved this patient for home health and will do dressing changes 3 days a week. If her SHENG is not approved they will have to stop seeing patient. Dr Andres has also offered to change the wound vac in his office. CM will continue to follow and assist with dc planning DCP- Discharge Planning Updated by [id number]: Jaki Melendez on 12/21/18 10:[address] Spoke with [facility] and [employer] [facility] to see if they will do indigent cases, both stated that they will look at it. [facility] sent a vasu form, I have given it to the Patient to fill out and I will send it in. DCP- Discharge Planning Updated by [email or web address]: Jaki Melendez on 12/20/18 3:[address] Spoke with patient about putting a temp wound vac on that will need to be changed MW and she does not have transportation for that. CM will continue to follow and assist as needed DCP- Discharge Planning Updated by [id number]: Melonie Smith on 12/18/18 5:[address] LATE ENTRY 1030 CM RECEIVED A REQUEST TO SPEAK WITH THE PATIENT AND HER MOTHER AT THE BEDSIDE REGARDING DISCHARGE PLANNING. 1330 CM WENT TO THE ROOM. THE PATIENT WAS OOB IN THE CHAIR. SHE COMPLETED HER RESP TREATMENT. SHE STATED HER MOTHER, YAMILET , WANTED TO SPEAK WITH ME. SHE WAS NOT PRSENT IN THE ROOM OR HALLWAY THE PATIENT INDICATED. 1445 THE MOTHER CAME TO THE DESK. CM MET WITH HER IN THE CASE MANAGEMENT OFFICE. THE PATIENT REPORTEDLY HAS BEEN CONTACTED BY [employer]. CM NOTED MEDICAID PENDING. TC TO VERIFY. THE MOTHER IS CONCERNED REGARDING CARE AT DISCHARGE. CM ADVISED HOME HEALTH CAN BE ORDERD FOR SN. THE MOTHER IS IN A WHEELCHAIR. SHE IS LIMITED IN THE ASSISTANCE SHE CAN PROVIDE. CM ADVISED TO ASSIST WITH PROVIDING INFORMATION THAT [employer] REQUEST. THE PATIENT WORKS AT A LOCAL [employer]. DEPENDING ON HER PROGRESS SHE MAY NEED A SKILLED SETTING. THE DISCHARGE PLAN IS FOR HOME. CM ALSO DISCUSSED WORKING WITH [employer] REGARDING AN APPLICATION FOR DISABILITY DEPENDING ON RECOVERY TIME AND RESTRICTIONS AT DISCHARGE, CM PROVIDED THE 800 PHONE NUMBER FOR [employer]. CM DISCUSSED MD PROVIDERS ON SERVICE TO DISCUSS POSSIBLE D/C NEEDS. CM ALSO ADVISED A CM IS AVAILABLE ON THE UNIT M-F TO ASSIST. EXPLAINED SHE NEED TO GET RELEASE OF INFORMATION FORMS. CM TO FOLLOW TO ASSIST. DCP- Discharge Planning Updated by [id number]: Marlin Pat on 12/13/18 4:[address] Patient Name: AYESHA ROMAN Admission Status: Elective Accout number: [id number] Admission Date: 12-12-2018 : 1980 Admission Diagnosis: Attending: JENNIFER ZAMORA Current LOS: 1 Anticipated DC Date: Planned Disposition: Home Primary Insurance: UNINSURED DISCOUNT PLAN Discharge Planning Comments: CM met with patient and her Mother Yamilet at bedside after explaining CM role and obtaining verbal consent. Patient is drowsy at this time and will be having surgery later today. Patient lives at home with her three sons where she is independent with his care and plans to return there upon discharge. Patient feels this would be a safe discharge. CM discussed availability / needs of home health and medical equipment. Patient denies any discharge needs at this time. Uncertain as to what her needs will be at discharge. CM checked with Moisés with [employer] to see if patient has been evaluated for Medicaid. Moisés stated that they have not evaluated yet .Patient's mother stated she will have her family drive her home upon discharge. CM will continue to follow and assist as needed with discharge planning / needs. Soloist Dancer: Marlin OMALLEY - Discharge Planning Initial Assessment Updated by [id number]: Marlin Stewart on 12/13/18 4:34 pm * Is the patient Alert and Oriented? Yes * How many steps to enter\exit or inside your home? * PCP LAURA SANCHEZ * Pharmacy [facility] [place] * Preadmission Environment Home with Family * ADLs Independent * Equipment None * List name and contact numbers for known caregivers / representatives who currently or will assist patient after discharge: YAMILET DO - MOTHER - [phone] * Verbal permission to speak to the caregivers and representatives has been obtained from the patient. Yes * Community resources currently utilized None * Additional services required to return to the preadmission environment? No * Can the patient safely return to the preadmission environment? Yes * Has this patient been hospitalized within the prior 30 days at any hospital? No Last DP export: 12/21/18 4:21 p Patient Name: AYESHA ROMAN Page [id number] at 1339 All edits/amendments must be made on the electronic document DICTATION DATE: 12/29/181337 SURGICAL DEVICE SALES REPRESENTATIVE: MARY 12/29/181337 RPT#: [id number] DC DATE:12/21/18 STATUS: DIS IN [facility] [address] [place] [address] END OF REPORT
== END 2018-12-21 18:48 | disposition home health service (06) | DRG 853 ==
LOC: D.ICU 13:33 → D.MS 16:15 → D.ICU 12-13 14:26 → D.MS 12-15 13:20
PROVIDERS: Surgery; ADMIT Internal Medicine Nephrology; ATTEND Internal Medicine Nephrology
PROC: 0WBF0ZZ Excision of Abdominal Wall, Open Approach (ICD-10-PCS; 2018-12-13)
PROC: 0DJD0ZZ Inspection of Lower Intestinal Tract, Open Approach (ICD-10-PCS; 2018-12-13)
PROC: 0WUF0JZ Supplement Abdominal Wall with Synthetic Substitute, Open Approach (ICD-10-PCS; principal; 2018-12-13 13:00)
PROC: 0DB80ZZ Excision of Small Intestine, Open Approach (ICD-10-PCS; 2018-12-13 13:00)
DX: A41.9 Sepsis, unspecified organism (principal); K43.7 Other and unspecified ventral hernia with gangrene; E43 Unspecified severe protein-calorie malnutrition; M72.6 Necrotizing fasciitis; K46.1 Unspecified abdominal hernia with gangrene; Z68.44 Body mass index [BMI] 60.0-69.9, adult; N39.0 Urinary tract infection, site not specified; N17.9 Acute kidney failure, unspecified; D62 Acute posthemorrhagic anemia; E87.0 Hyperosmolality and hypernatremia; F50.89 Other specified eating disorder; E66.01 Morbid (severe) obesity due to excess calories; D50.9 Iron deficiency anemia, unspecified; G47.33 Obstructive sleep apnea (adult) (pediatric); R06.89 Other abnormalities of breathing; E88.09 Other disorders of plasma-protein metabolism, not elsewhere classified